=== PATIENT | female | born 1965 | race Caucasian/White ===

== ENCOUNTER 2018-03-07 11:38 | Emergency (ER) | payer OTHER, SELFPAY ==
[2018-03-07 11:39] VITALS: BP 187/103; PULSE 72; RESP 18; TEMP 35.8; O2SAT 94; BMI 51.9
--- NOTE | 2018-03-07 11:57 | EKG12_ITS ---
Test Reason : HYPERTENSION Blood Pressure : / mmHG Vent. Rate : 070 BPM Atrial Rate : 070 BPM P-R Int : 140 ms QRS Dur : 088 ms QT Int : 418 ms P-R-T Axes : 034 027 060 degrees QTc Int : 451 ms Normal sinus rhythm Normal ECG Confirmed by DAVI ESTRADA ([id number]), sports editor DIRK WRIGHT ([id number]) on 03/11/2018 2:25:39 PM Referred By: KANU Confirmed By:DAVI ESTRADA
[2018-03-07 12:23] LABS: Absolute Lymphocyte Count 1.47 X10^3/ul (0.83-4.51); Absolute Neutrophil Count 3.1 X10^3/uL (2.0-7.7); Basophil# 0.01 X10^3/uL; Basophil% 0.2 % (0-1); Eosinophil# 0.03 X10^3/uL; Eosinophils% 0.6 % (0-5); Hematocrit 42.9 % (37-47); Hemoglobin 14.1 g/dl (12.0-15.0); Lymphocyte # 1.47 X10^3/ul (4.0); Lymphocyte % 29.1 % (19-41); Mean Corp Hgb Conc 32.9 g/gl (32-36); Mean Corpuscular Hgb 31.2 pg (27.0-32.0); Mean Corpuscular Volume 94.9 fL (81-99); Monocyte# 0.43 X10^3/uL; Monocyte% 8.5 % (0-10); Neutrophil # 3.09 X10^3/uL (2.7-7.7); Neutrophil % 61.2 % (47-70); Platelet Count 185 K/mm3 (150-450); RBC Distribution Width CV 13.7 % (11.6-14.6); RBC Distribution Width SD 46.9 fl (35.1-43.9); Red Blood Count 4.52 M/mm3 (4.2-5.4); White Blood Count 5.1 K/mm3 (4.4-11.0)
[2018-03-07 12:26] VITALS: BP 136/85; PULSE 77; RESP 16; O2SAT 95
[2018-03-07 12:27] LABS: POSITIVE COUNT NO; POSITIVE DIFFERENTIAL NO; POSITIVE MORPHOLOGY NO
[2018-03-07 12:38] VITALS: BP 137/88; BP 156/111; BP 160/103; PULSE 74; PULSE 82; PULSE 83
[2018-03-07 12:39] LABS: Prothrombin Time (Protime)PT. 13.2 SECONDS (11.7-14.9)
[2018-03-07 12:40] LABS: Partial Thromboplast Time 26.8 Seconds (24.1-36.2)
--- NOTE | 2018-03-07 12:43 | ED.DCSUM_ITS ---
- ER Visit Summary Date of Service: 03/07/18 Chief Complaint: Dizziness History of Present Illness: The patient is a 52 F who presents with dizziness that began today. Patient states her dizziness began when she woke up today. Patient states she feels like she is falling to the left. Patient states that she also feels like she can fall backwards if she leans her head back. Patient denies any hearing changes or tinnitus. Patient denies any fevers or chills. Patient admits to some intermittent palpitations. Patient states she noticed her blood pressure was elevated this morning. Patient denies any chest pain or shortness of breath. Patient admits to a mild headache. Patient denies any weakness. Physical Examination: Vital signs are stable for an elevated blood pressure 187/ 103 initially. Patient is afebrile. Patient is in no acute distress. Oral mucosa is pink and moist. Neck is supple. Trachea is midline. There is no JVD noted. Pupils are equal, round, reactive to light bilaterally. Extraocular muscles are intact. There is no nystagmus noted. Heart was regular rate and rhythm. Lungs are clear and equal bilaterally. Abdomen is soft. Bowel sounds are normal. There is no tenderness noted. Cranial nerves II through XII are intact. There are no focal motor or sensory deficits noted. Test Results: EKG showed normal sinus rhythm with a rate of 70. There are no acute ST or T-wave changes. This was unchanged compared to previous EKG dated 06/01/2007. CT scan of the brain was obtained. There is no acute intracranial abnormality noted. PA and lateral chest x-ray was obtained. There is no acute cardiopulmonary process noted. CBC, basic metabolic profile, and troponin were obtained and were essentially within normal limits. Emergency Department Course and Treatment: Orthostatic vital signs were obtained and were normal. Patient denied any dizziness with position changes. Patient was given a dose of meclizine here. Patient had slight improvement of her dizziness. Patient was given prescription for meclizine. Patient was instructed to drink plenty of fluids. Patient was instructed to follow-up with her primary care physician in 7-10 days. Patient understood and was agreeable with the plan. All questions were answered. Disposition: Discharged home Impression: Dizziness This note was generated with [employer] dictation software. It may contain incorrect words, spelling, and punctuation that were not noted in review of the chart prior to signing ED Disposition - Plan for ED Patient: Disposition: Home or Assisted Living Chief Complaint: Hypertension Diagnosis: Dizziness Instructions: ED Dizziness [facility] Prescriptions: Meclizine HCl [Antivert] 25 mg PO TID PRN PRN #20 tab PRN Reason: Dizziness Referrals: Satnam García III, MD [Primary Care Provider] -
[2018-03-07 12:45] LABS: Anion Gap 9 (5-15); BUN 13 mg/dL (7-18); BUN/Creat Ratio 19.1 RATIO (10-20); Calcium,Total 9.1 mg/dL (8.5-10.1); Chloride 105 mmol/L (98-107); Creatinine, Serum 0.68 mg/dL (0.55-1.02); EST Glomerular Filtration Rate 96 mL/min (>60); Est Glom Filt Rate - Afr Amer 116 mL/min (>60); Estimated Creatinine Clearance 89.57 ml/min; Glucose 120 mg/dL (74-106); Potassium 3.7 mmol/L (3.5-5.1); Sodium Level 141 mmol/L (136-145)
[2018-03-07] MEDS: Meclizine HCl 25 MG Tablet PO (12:51)
[2018-03-07 13:55] VITALS: BP 142/98; PULSE 74; RESP 20; O2SAT 94
[2018-03-07 15:47] VITALS: BP 142/78; PULSE 66; RESP 16; O2SAT 97
== END 2018-03-07 15:47 | disposition home or self-care (01) ==
PROVIDERS: Emergency Provider Emergency Medicine; Family Provider Family Medicine; PCP Family Medicine
DX: R42 Dizziness and giddiness (principal); M19.90 Unspecified osteoarthritis, unspecified site; E66.9 Obesity, unspecified; Z68.43 Body mass index [BMI] 50.0-59.9, adult; Z79.899 Other long term (current) drug therapy
CPT/HCPCS: 70450; 71046; 80048; 85025; 85610; 85730; 93005; 99285; A4216

== ENCOUNTER 2021-07-14 11:23 | Outpatient (CLI) | payer OTHER, SELFPAY ==
[2021-07-14] MEDS: 0.9% Saline Lock 10 ML Syringe IV (11:36)
[2021-07-14 11:37] VITALS: BP 176/98; PULSE 93; RESP 18; TEMP 36.4; O2SAT 93; BMI 52.4
[2021-07-14 12:19] VITALS: BP 129/73; PULSE 67; RESP 16; TEMP 36.5; O2SAT 98
[2021-07-14 13:04] VITALS: BP 122/72; PULSE 65; RESP 16; TEMP 36.4; O2SAT 98
== END 2021-07-14 23:59 | disposition home or self-care (01) ==
LOC: MS3OUT 11:24 → MS3 11:24
PROVIDERS: Referring Provider Nurse Practitioner Adult Health; Visit Provider Nurse Practitioner Adult Health
DX: Z23 Encounter for immunization (principal); U07.1 COVID-19
CPT/HCPCS: J7050; M0245; Q0245; A4216

== ENCOUNTER 2022-12-25 12:52 | Emergency (ER) | payer OTHER, SELFPAY ==
[2022-12-25 12:53] VITALS: BP 179/106; PULSE 89; RESP 14; TEMP 36.6; O2SAT 92; BMI 54.3
--- NOTE | 2022-12-25 13:18 | EKG12_ITS ---
Test Reason : Blood Pressure : / mmHG Vent. Rate : 081 BPM Atrial Rate : 081 BPM P-R Int : 148 ms QRS Dur : 078 ms QT Int : 396 ms P-R-T Axes : 065 018 051 degrees QTc Int : 460 ms Normal sinus rhythm Normal ECG Confirmed by CHAPARRO PETIT, CHICHI ([id number]), video news editor MOSES MEDINA ([id number]) on 12/26/2022 10:02:30 AM Referred By: Confirmed By:CHICHI MAYFIELD MD
[2022-12-25] MEDS: cloNIDine HCl 0.1 MG Tablet PO (13:29)
[2022-12-25 13:44] LABS: Absolute Lymphocyte Count 1.98 X10^3/uL (0.83-4.51); Absolute Neutrophil Count 2.7 X10^3/uL (2.0-7.7); Basophil# 0.03 X10^3/uL; Basophil% 0.6 % (0-1); Eosinophil# 0.05 X10^3/uL; Hematocrit 43.3 % (37-47); Lymphocyte # 1.98 X10^3/ul (0.83-4.51); Lymphocyte % 38.2 % (19-41); Mean Corp Hgb Conc 32.3 g/dL (32-36); Mean Corpuscular Hgb 30.8 pg (27.0-32.0); Mean Corpuscular Volume 95.2 fL (81-99); Mean Platelet Vol. 11.5 fl (6.2-12.0); Monocyte# 0.39 X10^3/uL; Monocyte% 7.5 % (0-10); NRBC Flagged by Analyzer 0 % (0-5); Neutrophil # 2.71 X10^3/uL (2.7-7.7); Neutrophil % 52.3 % (47-70); Platelet Count 191 K/mm3 (150-450); RBC Distribution Width CV 13.3 % (11.6-14.6); RBC Distribution Width SD 45.9 fl (35.1-43.9); Red Blood Count 4.55 M/mm3 (4.2-5.4); White Blood Count 5.2 K/mm3 (4.4-11.0)
--- NOTE | 2022-12-25 13:45 | RAD_ITS ---
STUDY: X-RAY CHEST REASON FOR EXAM: Female, 57 years old. Hypertension TECHNIQUE: Single AP portable view of the chest. COMPARISON: 03/07/2018 FINDINGS: The lungs are clear and expanded. There is no demonstrated pleural abnormality. Normal size heart. Normal mediastinum and sal. Normal visualized pulmonary arteries. Normal visualized aortic arch and descending thoracic aorta. Normal visualized thoracic spine. Normal visualized ribs, clavicles, and shoulders. There is no demonstrated abnormality of the visualized soft tissue structures of the upper abdomen. RAD/Chest 1 View (Portable) IMPRESSION: Normal x-ray examination of the chest. Electronically Signed: Ra Lara MD at 14:04 EDT ,
[2022-12-25 14:02] LABS: Anion Gap 5 (5-15); BUN 9 mg/dL (7-18); BUN/Creat Ratio 13.1 RATIO (10-20); Calcium,Total 8.8 mg/dL (8.5-10.1); Chloride 106 mmol/L (98-107); Creatinine, Serum 0.69 mg/dL (0.55-1.02); EST Glomerular Filtration Rate 93 mL/min (>60); Est Glom Filt Rate - Afr Amer 113 mL/min (>60); Estimated Creatinine Clearance 86.42 ml/min; Glucose 193 mg/dL (74-106); Potassium 3.9 mmol/L (3.5-5.1); Sodium Level 138 mmol/L (136-145); Troponin-I HS 12 pg/mL (3.0-54.0)
[2022-12-25 14:07] VITALS: BP 165/99; PULSE 82; RESP 18; O2SAT 94
[2022-12-25 14:36] VITALS: BP 144/106; PULSE 74; RESP 14; O2SAT 96
--- NOTE | 2022-12-25 15:26 | EX.ED.DYSGE1 ---
HPI History of Present Illness Chief Complaint: Hypertension Informant: patient Onset/Context/Timing Onset: Today Context: Sudden Onset Timing: Continuous Quality: Pressure Location: Head Worsened by: Nothing Relieved by: Tylenol Narrative Narrative: Cleve with elevated blood pressures that began this morning. Patient states she woke up and felt pressure in her head. Patient states she checked her blood pressure at home and it was 238/155. Patient states she then checked her blood sugar and it was 233. Patient states she continue to monitor her blood pressure at home and it remained elevated. Patient states that her primary care physician recently had her stop her losartan. Patient denies any chest pain. Patient denies any shortness of breath. Patient denies any nausea or vomiting. Patient denies any diaphoresis. Patient states she did feel somewhat lightheaded when her blood pressure was high. [facility] Medical History (Updated 12/25/22 @ 15:[address] Justin Monk DO) HTN (hypertension) Home Medications zolpidem 10 mg tablet (Ambien) 10 mg PO QHS PRN PRN Sleep 08/14/15 [History Last Taken Unknown] cyclobenzaprine 10 mg tablet 10 mg PO QHS PRN Pain 12/25/22 [History Last Taken Unknown] Allergy/AdvReac Type Severity Reaction Status Date / Time celecoxib [From Celebrex] Allergy Rash Verified 12/25/22 12:53 Sulfa (Sulfonamide Allergy Rash Verified 12/25/22 12:53 Antibiotics) Surgical History (Updated 12/25/22 @ 15:[address] Justin Monk DO) Status post right partial knee replacement Social History Smoking Status: Never smoker ROS ROS ED Constitutional Constitutional ED: Denies chills or fever(s) Eyes Eyes: Denies blurry vision or change in vision ENT ENT ED: Denies rhinorrhea or sore throat Cardiovascular Cardiovascular: Denies chest pain or palpitations Respiratory/Chest Respiratory/Chest: Denies cough or dyspnea Gastrointestinal Gastrointestinal: Denies nausea or vomiting Genitourinary Genitourinary ED: Denies dysuria or hematuria Musculoskeletal Musculoskeletal: Reports back pain; Denies neck pain Integumentary Denies abscess or rash Neurologic Neurologic: Reports headache(s); Denies weakness Allergic/Immunologic Allergic/Immunologic ED: Denies mouth swelling or urticaria EXAM Physical Exam Const Vital Signs: 12/25/22 12:53 12/25/22 13:32 12/25/22 14:07 Temperature 98 F Temperature Source Temporal Pulse Rate 89 82 Respiratory Rate 14 18 Respiratory Effort Normal Non-Labored Respiratory Pattern Normal Blood Pressure 179/106 H 165/99 H Blood Pressure Mean 130 121 Pulse Ox 92 94 Oxygen Delivery Method Room Air Room Air 12/25/22 14:36 Temperature Temperature Source Pulse Rate 74 Respiratory Rate 14 Respiratory Effort Respiratory Pattern Blood Pressure 144/106 H Blood Pressure Mean 118 Pulse Ox 96 Oxygen Delivery Method Room Air Positive well nourished, well developed and obese General Appearance ED: well developed and NAD Nutritional Appearance: obese HEENT Reports moist mucous membranes Neck supple and no JVD Resp normal respiratory effort and clear to auscultation bilaterally Cardio regular rate, regular rhythm and no murmurs GI normal to inspection, nondistended, normoactive bowel sounds and non-tender Palpation: soft Extremity normal to inspection General Extremety ED: Negative for edema or tenderness General Extremity: Negative for edema Neuro oriented x3, CN's II-XII intact bilaterally and no sensory deficits noted Sensorium / Orientation: alert Motor Exam: strength 5/5 throughout Psych mental status grossly normal Skin no rashes or lesions noted MDM MDM MDM Narrative Medical decision making narrative: Differential diagnosis includes hypertensive emergency, uncontrolled hypertension, cardiac dysrhythmia, cardiac ischemia, electrolyte abnormality, and acute kidney injury. EKG will be obtained to assess for cardiac dysrhythmia and cardiac ischemia. Chest x-ray will be obtained to assess for cardiomegaly, congestive heart failure, and pneumonia. CBC will be obtained to assess for leukocytosis and anemia. Basic metabolic profile will be obtained to assess for electrolyte abnormality and renal function. High-sensitivity troponin will be obtained to assess for cardiac ischemia. Lab Data Attestation: I reviewed the patient's lab results. Lab results narrative: CBC was reviewed and was within normal limits. Basic metabolic profile was reviewed. Glucose was elevated at 193. The remainder was within normal limits. High-sensitivity troponin was reviewed and was normal at 12. Labs: Laboratory Results - last 24 hr 12/25/22 12/25/22 13:30 13:30 WBC 5.2 RBC 4.55 Hgb 14.0 Hct 43.3 MCV 95.2 MCH 30.8 MCHC 32.3 RDW Std Deviation 45.9 H RDW Coeff of Porfirio 13.3 Plt Count 191 MPV 11.5 Immature Gran % (Auto) 0.400 Neut % (Auto) 52.3 Lymph % (Auto) 38.2 [place] % (Auto) 7.5 Eos % (Auto) 1.0 Baso % (Auto) 0.6 Absolute Neuts (auto) 2.7 Absolute Lymphs (auto) 1.98 Nucleated RBC % 0 Sodium 138 Potassium 3.9 Chloride 106 Carbon Dioxide 27.0 Anion Gap 5 BUN 9 Creatinine 0.69 Estim Creat Clear Calc 86.42 Est GFR (MDRD) Af Amer 113 Est GFR (MDRD) Non-Af 93 BUN/Creatinine Ratio 13.1 Glucose 193 H Calcium 8.8 Troponin I High Sens 12 Radiography Diagnostic Testing: Clinical Impression(s) from Imaging Studies Chest X-Ray 12/25/22 13:45 IMPRESSION: Normal x-ray examination of the chest. Electronically Signed: Ra Lara MD at 14:04 EDT , Portable 1 view chest x-ray was obtained. On my independent interpretation, lung watson are clear. There is normal cardiac silhouette. Bony thorax is normal. There is no acute process noted. Radiologist also interpreted the x-ray and agrees. EKG Initial EKG: Attestation: I personally reviewed and interpreted this EKG as follows: Interpretation: Sinus Rhythm (81) and No Acute Injury Pattern Prior EKG tracings: available for review Prior: Unchanged (03/07/2018) Treatment and Re-Evaluation :: Patient was given a dose of clonidine here. Patient's blood pressure improved to 144/106. Patient was feeling better on reevaluation. Patient was instructed to restart her losartan. Patient was instructed to continue to monitor her blood pressures and to keep a log of these. Patient was instructed to follow-up with her primary care physician in 5 to 7 days. Patient understood and was agreeable with the plan. All questions were answered. Discharge Plan Triage Chief Complaint: Hypertension ED Provider: Justin Monk Dx/Rx/DC Orders Clinical Impression: Uncontrolled hypertension, BMI greater than 40 Instructions: ED High Blood Pressure Hypertension Prescriptions: No Action zolpidem [Ambien] 10 MG tablet 10 mg PO QHS PRN PRN (Reason: Sleep) cyclobenzaprine 10 mg tablet 10 mg PO QHS PRN (Reason: Pain) Label Comments: take 1 tablet by mouth three times a day if needed Primary Care Provider: Laura Shaikh NP Referrals: Laura Shaikh NP, [employer] [Primary Care Provider] - 5-7 Days Disposition Disposition: Home, Self Care
== END 2022-12-25 15:40 | disposition home or self-care (01) ==
PROVIDERS: Emergency Provider Emergency Medicine; PCP Registered Nurse; Visit Provider Emergency Medicine
DX: I10 Essential (primary) hypertension (principal); E66.9 Obesity, unspecified
CPT/HCPCS: 71045; 80048; 84484; 85025; 93005; 99285

== ENCOUNTER 2024-02-02 17:37 | Emergency (ER) | payer OTHER, SELFPAY ==
[2024-02-02 17:38] VITALS: BP 191/92; PULSE 102; RESP 20; TEMP 36.5; O2SAT 95; BMI 43.5
--- NOTE | 2024-02-02 18:07 | EDS_ITS ---
HPI History of Present Illness Chief Complaint: Flank Pain [facility] Medical History (Updated 02/02/24 @ 23:[address] Berhane Salazar, ) HTN (hypertension) Home Medications ?Medication ?Instructions ?Recorded ?Last Taken ?Type zolpidem 10 mg tablet (Ambien) 10 mg PO QHS PRN PRN Sleep 08/14/15 Unknown History cyclobenzaprine 10 mg tablet 10 - 20 mg PO QHS PRN Pain 12/25/22 Unknown History oxycodone 5 mg capsule 5 mg PO Q6H PRN pain 5 days #20 02/02/24 Unknown Rx caps prochlorperazine maleate 5 mg 5 mg PO TID PRN nausea and 02/02/24 Unknown Rx tablet (Compazine) vomiting #20 tabs Allergy/AdvReac Type Severity Reaction Status Date / Time lisinopril Allergy Intermediate COUGH Verified 02/02/24 17:38 celecoxib (From Celebrex) Allergy Rash Verified 02/02/24 17:38 Sulfa (Sulfonamide Allergy Rash Verified 02/02/24 17:38 Antibiotics) Surgical History (Updated 12/25/22 @ 15:[address] Justin Monk DO) Status post right partial knee replacement Social History Smoking Status: Never smoker EXAM Physical Exam Const Vital Signs: 02/02/24 17:38 02/02/24 19:37 02/02/24 21:37 Temperature 97.7 F L 100.2 F H Temperature Source Temporal Oral Pulse Rate 102 H 93 95 Respiratory Rate 20 H 21 H 20 H Blood Pressure 191/92 H 163/93 H 139/105 H Blood Pressure Mean 125 116 116 Pulse Ox 95 97 97 Oxygen Delivery Method Room Air Room Air Room Air 02/02/24 23:00 Temperature Temperature Source Pulse Rate 104 H Respiratory Rate 23 H Blood Pressure 123/69 H Blood Pressure Mean 87 Pulse Ox 93 Oxygen Delivery Method Room Air MDM MDM MDM Narrative Medical decision making narrative: HISTORY OF PRESENT ILLNESS: 58-year-old here with flank pain. Notes headache elevated blood pressure. No negrito he symptoms began several days ago. Denies falls or trauma. Denies focal loss of sensation. Denies family present history of connective tissue disorders. Notes history of abdominal surgery. Denies diarrhea or constipation. Denies vaginal bleeding or discharge. Denies vomiting but notes nausea. REVIEW OF SYSTEMS: Pertinent positives: Left flank pain, increased urination, chills headache and elevated blood pressure Pertinent negatives: As per HPI. PHYSICAL EXAM: Nursing triage notes reviewed, Vital signs reviewed Constitutional: please see mdm HENT: MMM Eyes: Pupils equal round and reactive to light, Extraocular muscles intact Neck: No stridor, no JVD, full neck ROM Lungs: Clear to auscultation, No wheezing or rales. No increased work of breathing, no conversational dyspnea, no accessory muscle use, no nasal flaring. No respiratory distress noted Heart: Regular rate and rhythm, No murmurs, No rubs and No gallops, 2+ distal pulses (radial, femoral, posterior tibial) in all extremities Abdomen: Soft, there is right upper quadrant TTP, positive Weathers sign but no rigidity, rebound or guarding, no obvious peritoneal signs, no palpable pulsatile abdominal masses, no auscultated abdominal bruit : No CVAT Extremities: No edema Neuro: No focal neurological deficits, cranial nerves II through XII intact, 5/5 strength in all extremities. Intact sensation to light touch in all extremities, 2+ reflexes bilateral patella tendons. Normal gait. No ataxia. Skin: No rash or lesions noted MEDICAL DECISION MAKING: Chief Complaint: flank pain External records reviewed: imaging reviewed: CT scan abdomen pelvisShows residual right hydronephrosis, right hydroureter, Factors affecting care: none nephrolithiasis Social determinants of health: none History obtained from others: the patient's family Consults: none [facility] Narrative: Patient was initially hypertensive with a blood pressure of 191/92, tachycardic to 102 otherwise afebrile nontoxic I considered the following differential diagnosis: Nephrolithiasis, hydronephrosis, AAA, acute cholecystitis I obtained a broad lab and imaging workup to further elucidate etiology the patient complaint. Initially treated the patient with IV metoclopramide, IV fluids for symptomatic control of headache, nausea. ALL IMAGES (IF OBTAINED) HAVE BEEN PERSONALLY REVIEWED AND INTERPRETED BY MYSELF. CBC without leukocytosis to suggest systemic inflammation, no anemia or thrombocytopenia Lactate is wnl indicating no end-organ hypoperfusion and/or hypoxia. BMP without evidence of significant electrolyte abnormalities, no anion gap, no acute kidney injury. Patient bilirubin is elevated concerning for hepatobiliary obstructive etiology given right upper quadrant TTP. Awaiting gallbladder ultrasound UA with evidence of inflammation and hematuria but no evidence of obvious UTI (in clinical context may be associated kidney stone) CT scan abdomen pelvis read reviewed per myself shows right hydronephrosis and approximately 3 to 4 mm nephrolithiasis. Urologist agrees with my interpretation. Radiologist notes 4.5 mm proximal right ureteral stone. With accompanying hydronephrosis. Ultrasound of the right upper quadrant shows no evidence of acute cholecystitis CT scan of the head showed no acute intracranial normality Upon reassessment patient's blood pressure improved to 123/69, heart rate sarah ined slightly elevated. The etiology of patient's complaints is likely secondary to nephrolithiasis. Patient's pain is under control. She is not vomiting. There is no signs of UTI or urosepsis. Patient is appropriate for discharge home with oral narcotics (oxycodone), instructions to take plenty of p.o. fluid, and Compazine for headache and nausea relief. The patient and/or family, caregivers express understanding. The patient and/or family, caregivers agrees with the plan. Shared decision making: I will have a discussion with the patient and or visitors regarding risk/benefits of further testing or admission. They will be made aware of of the risk/benefits inherent in this decision they will be given the opportunity to voice understanding. Total critical care time today provided was at least 0 [] minutes. This excludes separately billable procedures. Critical care time (if documented) is secondary to the patient having high probability of clinically significant/life threa tening deterioration in the patient's condition which required my urgent intervention. Impression: 1. Right flank pain 2. Right nephrolithiasis 3. Hydronephrosis 4. Hyperbilirubinemia Dispo: Discharge home This note was generated with [employer] dictation software. It may contain incorrect words, spelling, and punctuation that were not noted in review of the chart prior to signing. Lab Data Labs: Laboratory Results - last 24 hr 02/02/24 02/02/24 19:12 19:22 WBC 7.4 RBC 4.25 Hgb 13.2 Hct 39.9 MCV 93.9 MCH 31.1 MCHC 33.1 RDW Std Deviation 44.2 H RDW Coeff of Porfirio 13.0 Plt Count 224 MPV 10.9 Immature Gran % (Auto) 0.400 Neut % (Auto) 77.4 H Lymph % (Auto) 12.9 L [place] % (Auto) 8.5 Eos % (Auto) 0.4 Baso % (Auto) 0.4 Absolute Neuts (auto) 5.7 Absolute Lymphs (auto) 0.96 Nucleated RBC % 0 Sodium 140 Potassium 3.7 Chloride 107 Carbon Dioxide 28.0 Anion Gap 5 BUN 13 Creatinine 0.66 Estim Creat Clear Calc 126.63 Est GFR (MDRD) Af Amer 117 Est GFR (MDRD) Non-Af 97 BUN/Creatinine Ratio 19.6 Glucose 115 H Lactic Acid 0.9 Calcium 9.1 Total Bilirubin 1.20 H Direct Bilirubin 0.32 H AST 19 ALT 17 Alkaline Phosphatase 102 Total Protein 7.3 Albumin 3.1 L Globulin 4.2 Lipase 16 Urine Color Yellow Urine Clarity Clear Urine pH 8.0 Ur Specific [place] 1.015 Urine Protein 30 H Urine Glucose (UA) Normal Urine Ketones 50 H Urine Occult Blood 10 H Urine Nitrite Negative Urine Bilirubin Negative Urine Urobilinogen Normal Ur Leukocyte Esterase 25 H Urine RBC 0 SEEN Urine WBC 0 SEEN Ur Squamous Epith Cells 0 SEEN Calcium Oxalate Crystal RARE Urine Bacteria 0 SEEN Urine Mucus 0 SEEN Radiography Diagnostic Testing: Clinical Impression(s) from Imaging Studies Abdomen/Pelvis CT 02/02/24 19:05 IMPRESSION: 1. Moderate right hydronephrosis due to a stone measuring up to 4.5 mm in the proximal right ureter. 2. Leiomyoma measuring 2.9 cm and the left fundus of the uterus. 3. Scattered diverticula without diverticulitis. 4. Left renal cyst with layering milk of calcium within it unchanged since prior exam. No follow-up necessary. Electronically Signed: Jose Alegre MD at 22:41 EDT , Gallbladder Ultrasound 02/02/24 19:30 IMPRESSION: 1. Moderate hydronephrosis right kidney. 2. Sludge within the gallbladder. No gallstones identified. 3. Enlarged fatty liver. Electronically Signed: Jose Alegre MD at 22:37 EDT , Brain CT 02/02/24 20:15 IMPRESSION: No acute findings in the head/brain. Electronically Signed: Dhiraj Walter MD at 21:56 EDT , Discharge Plan Triage Chief Complaint: Flank Pain ED Provider: Berhane Salazar Dx/Rx/DC Orders Instructions: ED Kidney Stone with Pain Prescriptions: New oxycodone 5 mg capsule 5 mg PO Q6H PRN (Reason: pain) 5 Days Qty: 20 0RF prochlorperazine maleate [Compazine] 5 mg tablet 5 mg PO TID PRN (Reason: nausea and vomiting) Qty: 20 0RF No Action zolpidem [Ambien] 10 MG tablet 10 mg PO QHS PRN PRN (Reason: Sleep) cyclobenzaprine 10 mg tablet 10 - 20 mg PO QHS PRN (Reason: Pain) Patient Comments: take 1 tablet by mouth three times a day if needed Primary Care Provider: Laura Shaikh [employer] Referrals: Beatrice Pena MD [Med Staff - Active Staff] - Activity Restrictions/Additional Instructions: Thank you for trusting us with your care today! Given diagnosed with a kidney stone. This should pass on its own given its small size. Please take Compazine as needed for headache and and nausea control. Please take Tylenol (2 pills, 650 mg), ibuprofen (2 pills, 400 mg) every 6 hours as needed for pain and fever control. Please take oxycodone every 6 hours as needed for breakthrough pain control Please return to the emergency department if your symptoms change or worsen. Specifically did not urinate for greater than 12 hours, develop vomiting, develop fever, weakness, if you lose consciousness. Please follow with your primary care physician for further outpatient evaluation and management. Print Language: Macedonian Disposition Disposition: Home, Self Care
--- NOTE | 2024-02-02 19:05 | CT_ITS ---
EXAM: CT ABDOMEN AND PELVIS WITH INTRAVENOUS CONTRAST CLINICAL INDICATION: right flank pain TECHNIQUE: Helically acquired images were obtained of the abdomen and pelvis with intravenous contrast. This CT exam was performed using one or more of the following dose reduction techniques: automated exposure control, adjustment of the mA and/or kV according to patient size, and/or use of iterative reconstruction technique. CONTRAST: 100 cc of Isovue-370 IV. RADIATION DOSE: CTDIvol = 22.77 mGy, DLP = 1797.49 mGy-cm COMPARISON: 03/14/2016. FINDINGS: LOWER THORAX: Unremarkable. Lung bases are clear. No cardiomegaly. No significant pericardial effusion. ABDOMEN: LIVER: Unremarkable. Homogeneous. No focal mass. GALLBLADDER AND BILE DUCTS: Unremarkable. No calcified gallstones. No gallbladder distention or wall edema. No intra- or extrahepatic biliary ductal dilation. PANCREAS: Unremarkable. No focal cystic or solid mass. SPLEEN: Unremarkable. Normal size without focal cystic or solid mass. ADRENALS: Unremarkable. No nodules. KIDNEYS AND URETERS: Moderate right hydronephrosis due to a stone measuring up to 4.5 mm in the proximal right ureter. Left renal cyst with layering milk of calcium within it unchanged since prior exam. Normal renal size and position. STOMACH AND BOWEL: Scattered diverticula without diverticulitis. Status post gastric sleeve surgery. No stomach or bowel distention. PELVIS: APPENDIX: No evidence of acute appendicitis. BLADDER: Unremarkable. REPRODUCTIVE: Leiomyoma measuring 2.9 cm and the left fundus of the uterus. ABDOMEN and PELVIS: INTRAPERITONEAL SPACE: Unremarkable. No ascites or other fluid collection. No free air. BONES/JOINTS: Unremarkable. No suspicious lytic or blastic abnormality. SOFT TISSUES: Unremarkable. No discrete abdominal or pelvic wall hernia. VASCULATURE: Unremarkable. Abdominal aorta is non-dilated. LYMPH NODES: Unremarkable. No enlarged lymph nodes. CT/Abdomen/Pelvis W IV Cont ONLY IMPRESSION: 1. Moderate right hydronephrosis due to a stone measuring up to 4.5 mm in the proximal right ureter. 2. Leiomyoma measuring 2.9 cm and the left fundus of the uterus. 3. Scattered diverticula without diverticulitis. 4. Left renal cyst with layering milk of calcium within it unchanged since prior exam. No follow-up necessary. Electronically Signed: Jose Alegre MD at 22:41 EDT ,
--- NOTE | 2024-02-02 19:05 | EKG12_ITS ---
Test Reason : DYSRHYTHMIA Blood Pressure : / mmHG Vent. Rate : 090 BPM Atrial Rate : 090 BPM P-R Int : 142 ms QRS Dur : 082 ms QT Int : 364 ms P-R-T Axes : 058 000 061 degrees QTc Int : 445 ms Normal sinus rhythm Possible Left atrial enlargement Borderline ECG Confirmed by Jose Alas ([id number]), editorial writer DURGA ADAME ([id number]) on 02/04/2024 2:13:19 PM Referred By: Confirmed By:Jose Alas
[2024-02-02] MEDS: Metoclopramide 10 MG/2 ML Vial 5 MG IV (19:14)
[2024-02-02] MEDS: 0.9% Normal Saline (1000mL) 1,000 ML 1000 ML IV (19:14)
[2024-02-02 19:20] LABS: Bacteria 0 SEEN /hpf (None Seen); Mucous, Urine 0 SEEN /hpf (<or=2+); Red Blood Cells-Urine 0 SEEN /hpf (0-5); Squamous Epithelial Cells - UA 0 SEEN /hpf (5-10); White Blood Cells 0 SEEN /hpf (0-5)
[2024-02-02 19:26] LABS: Color, Urine Yellow (Yellow); Glucose, Dipstick Normal (Normal); Ketone-Dipstick 50 mg/dl (Negative); Leukocyte Esterase-Dipstick 25 /ul (Negative); Nitrite-Dipstick Negative (Negative); Occult Blood-Urine 10 /ul (Negative); Protein-Dipstick 30 mg/dl (Negative); Specific Gravity, Urine 1.015 (1.002-1.030); Urine Bilirubin Dipstick Negative (Negative); Urine Clarity Clear (Clear); Urine Urobilinogen Normal (Normal)
[2024-02-02 19:30] LABS: Absolute Lymphocyte Count 0.96 X10^3/uL (0.83-4.51); Absolute Neutrophil Count 5.7 X10^3/uL (2.0-7.7); Basophil# 0.03 X10^3/uL; Basophil% 0.4 % (0-1); Eosinophil# 0.03 X10^3/uL; Eosinophils% 0.4 % (0-5); Hematocrit 39.9 % (37-47); Hemoglobin 13.2 g/dL (12.0-15.0); Lymphocyte # 0.96 X10^3/ul (0.83-4.51); Lymphocyte % 12.9 % (19-41); Mean Corp Hgb Conc 33.1 g/dL (32-36); Mean Corpuscular Hgb 31.1 pg (27.0-32.0); Mean Corpuscular Volume 93.9 fL (81-99); Mean Platelet Vol. 10.9 fl (6.2-12.0); Monocyte# 0.63 X10^3/uL; Monocyte% 8.5 % (0-10); NRBC Flagged by Analyzer 0 % (0-5); Neutrophil # 5.74 X10^3/uL (2.7-7.7); Neutrophil % 77.4 % (47-70); Platelet Count 224 K/mm3 (150-450); RBC Distribution Width SD 44.2 fl (35.1-43.9); Red Blood Count 4.25 M/mm3 (4.2-5.4); White Blood Count 7.4 K/mm3 (4.4-11.0)
--- NOTE | 2024-02-02 19:30 | US_ITS ---
EXAM: US ABDOMEN LIMITED, RIGHT UPPER QUADRANT CLINICAL INDICATION: RUQ TTP TECHNIQUE: Real-time ultrasound of the right upper quadrant with image documentation. COMPARISON: No relevant prior studies available. FINDINGS: LIVER: The liver measures 21 cm. Hepatomegaly. Increased echogenicity of the liver. No intrahepatic biliary ductal dilation. GALLBLADDER: Sludge within the gallbladder. No shadowing gallstone. No gallbladder wall thickening is demonstrated. No pericholecystic fluid. Negative sonographic Weathers''s sign. COMMON BILE DUCT: Unremarkable as visualized. The proximal common bile duct is within normal limits for the patient''s age. PANCREAS: Pancreas is not well visualized. RIGHT KIDNEY: Moderate hydronephrosis right kidney. No shadowing calculus. No focal lesion or perinephric collection is demonstrated. US/Gallbladder IMPRESSION: 1. Moderate hydronephrosis right kidney. 2. Sludge within the gallbladder. No gallstones identified. 3. Enlarged fatty liver. Electronically Signed: Jose Alegre MD at 22:37 EDT ,
[2024-02-02 19:37] VITALS: BP 163/93; PULSE 93; RESP 21; O2SAT 97
[2024-02-02 19:39] LABS: Calcium Oxalate Crystals Ur RARE /hpf (<or=2+)
[2024-02-02 19:49] LABS: AST(SGOT) 19 U/L (15-37); Alanine Aminotransfer ALT/SGPT 17 U/L (13-56); Albumin, Serum 3.1 g/dL (3.2-5.0); Alkaline Phosphatase 102 U/L (45-117); Anion Gap 5 (5-15); BUN 13 mg/dL (7-18); BUN/Creat Ratio 19.6 RATIO (10-20); Bilirubin, Direct 0.32 mg/dL (0.00-0.30); Calcium,Total 9.1 mg/dL (8.5-10.1); Chloride 107 mmol/L (98-107); Creatinine, Serum 0.66 mg/dL (0.55-1.02); EST Glomerular Filtration Rate 97 mL/min (>60); Est Glom Filt Rate - Afr Amer 117 mL/min (>60); Estimated Creatinine Clearance 126.63 ml/min; Globulin 4.2 g/dL (2.2-4.2); Glucose 115 mg/dL (74-106); Lipase 16 U/L (13-75); Potassium 3.7 mmol/L (3.5-5.1); Protein, Total 7.3 g/dL (6.4-8.2); Sodium Level 140 mmol/L (136-145)
--- NOTE | 2024-02-02 20:15 | CT_ITS ---
EXAM: CT HEAD WITHOUT INTRAVENOUS CONTRAST CLINICAL INDICATION: headache TECHNIQUE: Multiple axial images were obtained of the head without intravenous contrast. This CT exam was performed using one or more of the following dose reduction techniques: automated exposure control, adjustment of the mA and/or kV according to patient size, and/or use of iterative reconstruction technique. RADIATION DOSE: CTDIvol = 44.99 mGy, DLP = 849.54 mGy-cm COMPARISON: 9.7.18 FINDINGS: BRAIN AND EXTRA-AXIAL SPACES: Unremarkable. No intra- or extra-axial hemorrhage. No evidence of acute infarct. No intracranial mass or mass effect. There is preservation of the [place]/white matter interface. Posterior fossa structures are unremarkable. Ventricles are appropriate for age. No hydrocephalus. Basal cisterns are patent. BONES/JOINTS: Degenerative changes of the mandibular condyles. No discrete lytic or blastic abnormalities. SINUSES: Unremarkable as visualized. Clear. MASTOID AIR CELLS: Unremarkable. Clear. ORBITS: Visualized globes, extraocular muscles, optic nerves and retrobulbar fat appear unremarkable. CT/Brain/Head without Contrast IMPRESSION: No acute findings in the head/brain. Electronically Signed: Dhiraj Walter MD at 21:56 EDT ,
[2024-02-02 20:16] LABS: Lactic Acid 0.9 mmol/L (0.4-1.9)
[2024-02-02] MEDS: DiphenhydrAMINE 50 MG/ML Syringe 12.5 MG IV (21:35)
[2024-02-02] MEDS: proCHLORPERazine 10 MG/2 ML Vial 5 MG IV (21:36)
[2024-02-02 21:37] VITALS: BP 139/105; PULSE 95; RESP 20; TEMP 37.9; O2SAT 97
[2024-02-02] MEDS: Acetaminophen 325 MG Tablet 650 MG PO (22:16)
[2024-02-02] MEDS: Ketorolac 15 MG/ML Vial IV (22:17)
[2024-02-02 23:00] VITALS: BP 123/69; PULSE 104; RESP 23; O2SAT 93
[2024-02-02 23:25] VITALS: BP 129/67; PULSE 101; RESP 23; TEMP 37.1; O2SAT 95
--- NOTE | 2024-02-03 17:14 | EX.ED.DYSGE1 ---
HPI History of Present Illness Chief Complaint: Flank Pain PFSH PFSH Medical History (Updated 02/02/24 @ 23:[address] Berhane Salazar, ) HTN (hypertension) Home Medications ?Medication ?Instructions ?Recorded ?Last Taken ?Type zolpidem 10 mg tablet (Ambien) 10 mg PO QHS PRN PRN Sleep 08/14/15 Unknown History cyclobenzaprine 10 mg tablet 10 - 20 mg PO QHS PRN Pain 12/25/22 Unknown History oxycodone 5 mg capsule 5 mg PO Q6H PRN pain 5 days #20 02/02/24 Unknown Rx caps prochlorperazine maleate 5 mg 5 mg PO TID PRN nausea and 02/02/24 Unknown Rx tablet (Compazine) vomiting #20 tabs oxycodone 5 mg tablet 5 mg PO Q6H PRN pain 3 days #12 02/03/24 Unknown Rx tabs Allergy/AdvReac Type Severity Reaction Status Date / Time lisinopril Allergy Intermediate COUGH Verified 02/02/24 17:38 celecoxib (From Celebrex) Allergy Rash Verified 02/02/24 17:38 Sulfa (Sulfonamide Allergy Rash Verified 02/02/24 17:38 Antibiotics) Surgical History (Updated 12/25/22 @ 15:[address] Justin Monk DO) Status post right partial knee replacement Social History Smoking Status: Never smoker EXAM Physical Exam Const Vital Signs: 02/02/24 23:00 02/02/24 23:25 Temperature 98.7 F Pulse Rate 104 H 101 H Respiratory Rate 23 H 23 H Blood Pressure 123/69 H 129/67 H Blood Pressure Mean 87 87 Pulse Ox 93 95 Oxygen Delivery Method Room Air MDM MDM MDM Narrative Medical decision making narrative: Per pharmacy this prescription was sent for caps and not tablets they were requesting the change in prescription to oxycodone 5 mg tablets which was done for the patient after reviewing of the record and patient's previous provider was prescribing them oxycodone for pain control of a kidney stone. Lab Data Labs: Laboratory Results - last 24 hr 02/02/24 02/02/24 19:12 19:22 WBC 7.4 RBC 4.25 Hgb 13.2 Hct 39.9 MCV 93.9 MCH 31.1 MCHC 33.1 RDW Std Deviation 44.2 H RDW Coeff of Porfirio 13.0 Plt Count 224 MPV 10.9 Immature Gran % (Auto) 0.400 Neut % (Auto) 77.4 H Lymph % (Auto) 12.9 L [place] % (Auto) 8.5 Eos % (Auto) 0.4 Baso % (Auto) 0.4 Absolute Neuts (auto) 5.7 Absolute Lymphs (auto) 0.96 Nucleated RBC % 0 Sodium 140 Potassium 3.7 Chloride 107 Carbon Dioxide 28.0 Anion Gap 5 BUN 13 Creatinine 0.66 Estim Creat Clear Calc 126.63 Est GFR (MDRD) Af Amer 117 Est GFR (MDRD) Non-Af 97 BUN/Creatinine Ratio 19.6 Glucose 115 H Lactic Acid 0.9 Calcium 9.1 Total Bilirubin 1.20 H Direct Bilirubin 0.32 H AST 19 ALT 17 Alkaline Phosphatase 102 Total Protein 7.3 Albumin 3.1 L Globulin 4.2 Lipase 16 Urine Color Yellow Urine Clarity Clear Urine pH 8.0 Ur Specific [place] 1.015 Urine Protein 30 H Urine Glucose (UA) Normal Urine Ketones 50 H Urine Occult Blood 10 H Urine Nitrite Negative Urine Bilirubin Negative Urine Urobilinogen Normal Ur Leukocyte Esterase 25 H Urine RBC 0 SEEN Urine WBC 0 SEEN Ur Squamous Epith Cells 0 SEEN Calcium Oxalate Crystal RARE Urine Bacteria 0 SEEN Urine Mucus 0 SEEN Radiography Diagnostic Testing: Clinical Impression(s) from Imaging Studies Abdomen/Pelvis CT 02/02/24 19:05 IMPRESSION: 1. Moderate right hydronephrosis due to a stone measuring up to 4.5 mm in the proximal right ureter. 2. Leiomyoma measuring 2.9 cm and the left fundus of the uterus. 3. Scattered diverticula without diverticulitis. 4. Left renal cyst with layering milk of calcium within it unchanged since prior exam. No follow-up necessary. Electronically Signed: Jose Alegre MD at 22:41 EDT , Gallbladder Ultrasound 02/02/24 19:30 IMPRESSION: 1. Moderate hydronephrosis right kidney. 2. Sludge within the gallbladder. No gallstones identified. 3. Enlarged fatty liver. Electronically Signed: Jose Alegre MD at 22:37 EDT , Brain CT 02/02/24 20:15 IMPRESSION: No acute findings in the head/brain. Electronically Signed: Dhiraj Walter MD at 21:56 EDT , Discharge Plan Triage Chief Complaint: Flank Pain ED Provider: Berhane Salazar Dx/Rx/DC Orders Instructions: ED Kidney Stone with Pain Prescriptions: New oxycodone 5 mg capsule 5 mg PO Q6H PRN (Reason: pain) 5 Days Qty: 20 0RF prochlorperazine maleate [Compazine] 5 mg tablet 5 mg PO TID PRN (Reason: nausea and vomiting) Qty: 20 0RF oxycodone 5 mg tablet 5 mg PO Q6H PRN (Reason: pain) 3 Days Qty: 12 0RF No Action zolpidem [Ambien] 10 MG tablet 10 mg PO QHS PRN PRN (Reason: Sleep) cyclobenzaprine 10 mg tablet 10 - 20 mg PO QHS PRN (Reason: Pain) Patient Comments: take 1 tablet by mouth three times a day if needed Primary Care Provider: Laura Shaikh NP Referrals: Beatrice Pena MD [[facility] Staff - Active Staff] - Activity Restrictions/Additional Instructions: Thank you for trusting us with your care today! Given diagnosed with a kidney stone. This should pass on its own given its small size. Please take Compazine as needed for headache and and nausea control. Please take Tylenol (2 pills, 650 mg), ibuprofen (2 pills, 400 mg) every 6 hours as needed for pain and fever control. Please take oxycodone every 6 hours as needed for breakthrough pain control Please return to the emergency department if your symptoms change or worsen. Specifically did not urinate for greater than 12 hours, develop vomiting, develop fever, weakness, if you lose consciousness. Please follow with your primary care physician for further outpatient evaluation and management. Print Language: Japanese Disposition Disposition: Home, Self Care Discharge Date/Time: 02/02/24 23:25
== END 2024-02-02 23:25 | disposition home or self-care (01) ==
PROVIDERS: Emergency Provider Emergency Medicine; PCP Registered Nurse; Visit Provider Emergency Medicine
DX: N13.2 Hydronephrosis with renal and ureteral calculous obstruction (principal); R31.9 Hematuria, unspecified; I10 Essential (primary) hypertension; E80.6 Other disorders of bilirubin metabolism; Z79.899 Other long term (current) drug therapy; Z96.651 Presence of right artificial knee joint
CPT/HCPCS: 70450; 74177; 76705; 80048; 80076; 81001; 83605; 83690; 85025; 87086; 87088; 93005; 96361; 96374; 96375; 96376; 99285; J7030; Q9967; A4216

== ENCOUNTER 2024-06-03 15:45 | Inpatient (IN) | payer OTHER, SELFPAY ==
[2024-06-03] VITALS (15 sets, daily range): BP systolic 111–153; BP diastolic 46–98; PULSE 90–154; RESP 16–22; TEMP 36.1–39.5; O2SAT 94–100; BMI 44.1; BMI 43.9
--- NOTE | 2024-06-03 16:05 | RAD_ITS ---
STUDY: X-RAY CHEST REASON FOR EXAM: Female, 58 years old. sob TECHNIQUE: Single AP portable view of the chest. COMPARISON: 12/25/2022. FINDINGS: The lungs are clear and expanded. There is no demonstrated pleural abnormality. Normal size heart. Normal mediastinum and sal. Normal visualized pulmonary arteries. Normal visualized aortic arch and descending thoracic aorta. Normal visualized thoracic spine. Normal visualized ribs, clavicles, and shoulders. There is no demonstrated abnormality of the visualized soft tissue structures of the upper abdomen. RAD/Chest PA and Lateral IMPRESSION: Normal x-ray examination of the chest. Electronically Signed: Ra Lara MD at 16:34 EST ,
[2024-06-03 16:20] LABS: Absolute Lymphocyte Count 0.51 X10^3/uL (0.83-4.51); Absolute Neutrophil Count 12.7 X10^3/uL (2.0-7.7); Basophil# 0.03 X10^3/uL; Basophil% 0.2 % (0-1); Eosinophil# 0.01 X10^3/uL; Eosinophils% 0.1 % (0-5); Hematocrit 38.9 % (37-47); Hemoglobin 13.1 g/dL (12.0-15.0); Lymphocyte # 0.51 X10^3/ul (0.83-4.51); Lymphocyte % 3.7 % (19-41); Mean Corp Hgb Conc 33.7 g/dL (32-36); Mean Corpuscular Hgb 30.8 pg (27.0-32.0); Mean Corpuscular Volume 91.3 fL (81-99); Monocyte% 2.9 % (0-10); NRBC Flagged by Analyzer 0 % (0-5); Neutrophil # 12.72 X10^3/uL (2.7-7.7); Neutrophil % 92.4 % (47-70); POSITIVE DIFFERENTIAL YES; Platelet Count 330 K/mm3 (150-450); RBC Distribution Width CV 12.7 % (11.6-14.6); RBC Distribution Width SD 42.1 fl (35.1-43.9); Red Blood Count 4.26 M/mm3 (4.2-5.4); White Blood Count 13.8 K/mm3 (4.4-11.0)
[2024-06-03 16:36] LABS: Anion Gap 8 (5-15); BUN 15 mg/dL (7-18); BUN/Creat Ratio 16.3 RATIO (10-20); Calcium,Total 9.2 mg/dL (8.5-10.1); Chloride 105 mmol/L (98-107); Creatinine, Serum 0.92 mg/dL (0.55-1.02); EST Glomerular Filtration Rate 66 mL/min (>60); Est Glom Filt Rate - Afr Amer 80 mL/min (>60); Glucose 200 mg/dL (74-106); Potassium 3.8 mmol/L (3.5-5.1); Sodium Level 138 mmol/L (136-145)
--- NOTE | 2024-06-03 16:55 | EDS_ITS ---
HPI History of Present Illness Chief Complaint: Fever Detail of Chief Complaint: Fever Informant: patient Narrative Narrative: Fever started May 17. At that time she had headache and bodyaches and a scratchy throat. Eventually tested positive for COVID th on 21 May. Her also then tested positive and her father has COVID-19 also and was hospitalized with it. Patient continues to run fevers. She was seen at urgent care 2 days ago and tested negative for COVID-19 as well as flu and RSV. Yesterday had fever up to 106. She continues to complain of chills and sweats. Last ibuprofen dose was at 3 PM. She denies urinary symptoms. She did have 3 episodes of vomiting today she thinks may be was related to cough. She has had no diarrhea. Patient denies any rashes or cellulitic changes. [facility] Medical History (Updated 06/03/24 @ 20:[address] Ashlee Hagan, DO) HTN (hypertension) Home Medications ?Medication ?Instructions ?Recorded ?Last Taken ?Type zolpidem 10 mg tablet (Ambien) 10 mg PO QHS PRN PRN Sleep 08/14/15 Unknown History cyclobenzaprine 10 mg tablet 10 - 20 mg PO QHS PRN Pain 12/25/22 Unknown History Allergy/AdvReac Type Severity Reaction Status Date / Time lisinopril Allergy Intermediate COUGH Verified 06/03/24 16:07 celecoxib (From Celebrex) Allergy Rash Verified 06/03/24 16:07 Sulfa (Sulfonamide Allergy Rash Verified 06/03/24 16:07 Antibiotics) Surgical History (Updated 12/25/22 @ 15:[address] Justin Monk DO) Status post right partial knee replacement Social History Smoking Status: Never smoker ROS ROS ED Review of Systems ROS Unobtainable: other Constitutional Constitutional ED: Reports chills, fever(s), lethargy and sweats; Denies weight loss Eyes Eyes: Denies blurry vision, change in vision or diplopia ENT ENT ED: Denies rhinorrhea or sore throat Cardiovascular Cardiovascular: Denies chest pain, orthopnea or racing heartbeat Respiratory/Chest Respiratory/Chest: Reports cough; Denies dyspnea, dyspnea on exertion, orthopnea or sputum Gastrointestinal Gastrointestinal: Denies abdominal pain, diarrhea, nausea or vomiting Genitourinary Genitourinary ED: Denies dysuria, hematuria or urinary frequency Musculoskeletal Musculoskeletal: Denies arthralgias, back pain, myalgias or neck pain Integumentary Denies abscess, Abrasions or rash Neurologic Neurologic: Reports headache(s); Denies weakness Psychiatric Psychiatric: Denies anxiety, depression or suicidal thoughts Endocrine Endocrinology: Denies polydipsia, polyphagia or polyuria Hematologic/Lymphatic Hematologic/Lymphatic: Denies easy bleeding, easy bruising or lymphadenopathy Allergic/Immunologic Allergic/Immunologic ED: Denies mouth swelling, tongue swelling or urticaria EXAM Physical Exam Const Vital Signs: 06/03/24 15:46 06/03/24 16:50 06/03/24 17:12 Temperature 103.1 F H 100.2 F H Temperature Source Oral Temporal Pulse Rate 154 H 111 H Respiratory Rate 22 H 21 H Blood Pressure 112/98 H 145/74 H Blood Pressure Mean 102 97 Pulse Ox 95 94 Oxygen Delivery Method Room Air Room Air Room Air 06/03/24 17:12 06/03/24 17:13 06/03/24 18:00 Temperature 100.2 F H 98.5 F Temperature Source Oral Oral Pulse Rate 102 H Respiratory Rate 16 Blood Pressure 111/72 Blood Pressure Mean 85 Pulse Ox 95 95 Oxygen Delivery Method Room Air 06/03/24 19:00 Temperature 98.2 F Temperature Source Oral Pulse Rate 100 Respiratory Rate 16 Blood Pressure 111/72 Blood Pressure Mean 85 Pulse Ox 100 Oxygen Delivery Method Room Air Positive well nourished and well developed General Appearance ED: well developed and NAD HEENT Reports TM's clear and moist mucous membranes normocephalic and atraumatic; Negative for trauma or tenderness Tympanic Membrane ED: Yes TM's clear Eyes PERRL and EOMs intact bilaterally General Eye ED: Negative for pale conjunctiva or scleral icterus Neck no lymphadenopathy, supple and no JVD General: Negative for tenderness Chest Wall inspection of chest normal and palpation of chest normal Chest: Negative for tenderness Resp normal respiratory effort and clear to auscultation bilaterally Effort and Inspection: Negative for respiratory distress or pain with movement Auscultation: Negative for rhonchi, wheezes or diminished lung sounds Cardio regular rhythm, S1 normal heart sound, S2 normal heart sound and no murmurs; Negative for regular rate Rate: tachycardic Peripheral Pulses: pulses 2+ throughout GI normal to inspection, nondistended, normoactive bowel sounds, soft to palpation, non-tender, non-distended and no masses Back/Spine no CVA tenderness and no thoracic nor lumbar tenderness Extremity normal to inspection General Extremety ED: Negative for edema General Extremity: Negative for edema Neuro oriented x3, CN's II-XII intact bilaterally, no sensory deficits noted and gait normal Sensorium / Orientation: awake, alert, oriented to person, oriented to place and oriented to time Motor Exam: strength 5/5 throughout and strength abnormal Psych mental status grossly normal Skin no rashes or lesions noted and no wounds MDM MDM MDM Narrative Medical decision making narrative: Patient presents with high fevers recent COVID diagnosis. She tested negative for COVID several days ago. IV line established blood cultures ordered. CBC with differential white count of 13.8 with hemoglobin 13 and platelet count of 330. Chemistries unremarkable. Lactate was normal at 1.2. Urinalysis positive for infection. Patient started on Rocephin IV. I did obtain a CT scan of the abdomen pelvis as she has history of kidney stones to rule out obstruction with sepsis. CT scan shows a 5 mm stone right proximal ureter with hydroureter. Discussed case with urology Dr. Wright who asked that we admit patient to medicine and he will call the surgical team and to put a stent in to relieve the obstruction. Lab Data Attestation: I reviewed the patient's lab results. Labs: Laboratory Results - last 24 hr 06/03/24 06/03/24 06/03/24 16:13 16:46 17:14 WBC 13.8 H RBC 4.26 Hgb 13.1 Hct 38.9 MCV 91.3 MCH 30.8 MCHC 33.7 RDW Std Deviation 42.1 RDW Coeff of Porfirio 12.7 Plt Count 330 MPV 10.0 Immature Gran % (Auto) 0.700 Neut % (Auto) 92.4 H Lymph % (Auto) 3.7 L [place] % (Auto) 2.9 Eos % (Auto) 0.1 Baso % (Auto) 0.2 Absolute Neuts (auto) 12.7 H Absolute Lymphs (auto) 0.51 L Nucleated RBC % 0 Sodium 138 Potassium 3.8 Chloride 105 Carbon Dioxide 26.0 Anion Gap 8 BUN 15 Creatinine 0.92 Estim Creat Clear Calc 91.60 Est GFR (MDRD) Af Amer 80 Est GFR (MDRD) Non-Af 66 BUN/Creatinine Ratio 16.3 Glucose 200 H Lactic Acid 1.2 Calcium 9.2 Urine Color Yellow Urine Clarity Sl. Cloudy Urine pH 6.0 Ur Specific [place] 1.010 Urine Protein 100 H Urine Glucose (UA) Normal Urine Ketones Negative Urine Occult Blood 250 H Urine Nitrite Positive H Urine Bilirubin Negative Urine Urobilinogen Normal Ur Leukocyte Esterase 500 H Urine RBC 5-10 SEEN Urine WBC 10-25 SEEN Ur Squamous Epith Cells 0-5 SEEN Urine Bacteria 3+ WBC Casts 0-5 SEEN Urine Mucus 0 SEEN Radiography Diagnostic Testing: Clinical Impression(s) from Imaging Studies Chest X-Ray 06/03/24 16:05 IMPRESSION: Normal x-ray examination of the chest. Electronically Signed: Ra Lara MD at 16:34 EST , Abdomen/Pelvis CT 06/03/24 18:35 IMPRESSION: Limited by patient''s size. There has been no movement of a proximal right ureteral stone since January. Moderate right hydronephrosis. Probable cholelithiasis. Stable stones and calcifications of the mid left kidney. Moderate diffuse fecal retention. Electronically Signed: Ra Lara MD at 19:40 EST , Discharge Plan Triage Chief Complaint: Fever ED Provider: Ashlee Hagan Dx/Rx/DC Orders Clinical Impression: Urolithiasis, UTI (urinary tract infection), Leukocytosis Prescriptions: No Action zolpidem [Ambien] 10 MG tablet 10 mg PO QHS PRN PRN (Reason: Sleep) cyclobenzaprine 10 mg tablet 10 - 20 mg PO QHS PRN (Reason: Pain) Patient Comments: take 1 tablet by mouth three times a day if needed Primary Care Provider: Laura Shaikh NP Referrals: Laura Shaikh NP, [employer] [Primary Care Provider] - Print Language: Bots[place]an Disposition Disposition: [facility]
[2024-06-03] MEDS: 0.9% Normal Saline (1000mL) 1,000 ML 999 ML IV (17:12)
[2024-06-03 17:19] LABS: Lactic Acid 1.2 mmol/L (0.4-1.9)
[2024-06-03 17:20] LABS: Mucous, Urine 0 SEEN /hpf (<or=2+)
[2024-06-03 17:25] LABS: Color, Urine Yellow (Yellow); Glucose, Dipstick Normal (Normal); Ketone-Dipstick Negative (Negative); Leukocyte Esterase-Dipstick 500 /ul (Negative); Nitrite-Dipstick Positive (Negative); Occult Blood-Urine 250 /ul (Negative); Protein-Dipstick 100 mg/dl (Negative); Urine Bilirubin Dipstick Negative (Negative); Urine Clarity Sl. Cloudy (Clear); Urine Urobilinogen Normal (Normal)
[2024-06-03 17:32] LABS: Bacteria 3+ /hpf (None Seen); Red Blood Cells-Urine 5-10 SEEN /hpf (0-5); Squamous Epithelial Cells - UA 0-5 SEEN /hpf (5-10); White Blood Cells 10-25 SEEN /hpf (0-5); White Cell Cast 0-5 SEEN /lpf (None Seen)
--- NOTE | 2024-06-03 18:35 | CT_ITS ---
STUDY: CT ABDOMEN AND PELVIS WITHOUT CONTRAST REASON FOR EXAM: Female, 58 years old. left flank pain RADIATION DOSAGE (If Supplied By Facility): = ( 23.82 ) mGy, DLP = ( 1297.12 ) mGycm TECHNIQUE: Transaxial images were obtained from the dome of the diaphragm to the symphysis pubis without oral contrast, and without intravenous contrast. Sagittal and coronal images were reconstructed. Individualized dose optimization techniques were used for this CT. COMPARISON: 02/02/2024. FINDINGS: Exam limited by patient size which causes artifact and decreases resolution. The visualized lung bases are unremarkable. The visualized portions of the heart are within normal limits. There is marked hepatomegaly and fatty infiltration of the liver. Distended gallbladder with increased density along the dependent portion of the gallbladder. This may be sludge and/or tiny stones. Findings were also present previously. Unremarkable pancreas. Mild to moderate splenomegaly. Normal bilateral adrenal glands. Abnormal right kidney which shows persistent moderate hydronephrosis and previous study related to a stable 5 mm proximal right ureteral stone which is not low in the prior study in January. Stable left kidney with mid renal scar associated with calcification and 2 cm mid renal cyst within which are calcifications. Evaluation of the GI tract is limited by absence of oral contrast. There has been previous gastric sleeve surgery. No dilated loops of bowel or evidence for obstruction. Cannot exclude segmental thickening of the mon of the small or large bowel. Cannot exclude enteritis or colitis. Moderate diffuse fecal retention. Diverticulosis without definite diverticulitis. Appendix within normal limits. Normal abdominal aorta. Normal inferior vena cava. Normal retroperitoneum. Normal urinary bladder. Normal visualized uterus. Normal abdominal wall. Normal osseous structures. CT/Abdomen/Pelvis without Cont IMPRESSION: Limited by patient''s size. There has been no movement of a proximal right ureteral stone since January. Moderate right hydronephrosis. Probable cholelithiasis. Stable stones and calcifications of the mid left kidney. Moderate diffuse fecal retention. Electronically Signed: Ra Lara MD at 19:40 EST ,
[2024-06-03] MEDS: Ceftriaxone 1 GM/50 ML BAG IV (18:52)
--- NOTE | 2024-06-03 20:16 | HP.PCM.HOS_ITS ---
HPI - General General Date of Admission: 06/03/24 Date of Service: 06/03/24 Chief Complaint: Fever and Malaise. HPI Narrative SREE IZQUIERDO, is a 58 F with a past medical history of essential hypertension, morbid obesity; with BMI of 44.2 this admission, remote history of Right renal calculus (~1996); s/p Right ureteral stent by Dr. Reynoso, history of UTI, listed allergy to lisinopril (cough), listed allergy to sulfonamide antibiotics (rash), listed allergy to celecoxib (rash), OA; with history of partial Right knee replacement and recently diagnosed COVID-19 who presents to [facility] ER complaining of fever and malaise. Mrs. Izquierdo reports her acute symptoms began approximately May 17, 2024 with fever, headache, body aches and sore throat culminating in her being diagnosed with COVID-19 on May 21, 2024 with her then also testing positive for COVID-19 and then her father was also hospitalized with COVID-19 during that timeframe. Unfortunately, she has continued to run fevers with a temperature of 106 degrees Fahrenheit recorded at her home earlier today with chills and sweats for which she took ibuprofen at ~15:00 hours. She denies dysuria, hematuria or urinary frequency but she denies admit to nausea with three episodes of vomiting with bilious emesis. She additionally denies associated diarrhea, rash, cellulitic changes or other obvious source of infection. In the ER she was noted to have a UA positive for Acute Cystitis; with microscopic hematuria complicated by CT evidence of a Right proximal ureteral stone that has not moved since January 2024 with mild Right hydronephrosis, probable cholelithiasis and stable stones and calcifications of the Left mid kidney in addition to moderate diffuse fecal retention with a confirmatory Leukocytosis of 13.8K present on admission along with Hyperglycemia of 200 mg/dL present on admission suggestive underlying diabetes mellitus type-2 and she was then started on empiric IV Rocephin and admitted to the PCU for ongoing care for a stay that is expected to extend beyond 2 midnights. [facility] Medical History HTN (hypertension) Home Medications ?Medication ?Instructions ?Recorded ?Last Taken ?Type zolpidem 10 mg tablet (Ambien) 10 mg PO QHS PRN PRN Sleep 08/14/15 Unknown History cyclobenzaprine 10 mg tablet 10 - 20 mg PO QHS PRN Pain 12/25/22 Unknown History Allergy/AdvReac Type Severity Reaction Status Date / Time lisinopril Allergy Intermediate COUGH Verified 06/03/24 16:07 celecoxib (From Celebrex) Allergy Rash Verified 06/03/24 16:07 Sulfa (Sulfonamide Allergy Rash Verified 06/03/24 16:07 Antibiotics) Surgical History Status post right partial knee replacement Social History Smoking Status: Never smoker ROS ROS Narrative Review of Systems: Constitutional: Patient admits to fever, chills and malaise as per HPI. Eyes: Patient denies changes in vision or discharge from eyes. ENT: Patient denies runny nose, sore throat or ear pain. Resp: Patient admits to cough but she denies SOB. GI: Patient denies abdominal pain, nausea, vomiting or diarrhea. : Patient denies dysuria or hematuria. MSK: Patient denies arthralgias or myalgias. Skin: Patient denies rash, abscess or jaundice. Psych: Patient denies symptoms of uncontrolled depression or anxiety. Neuro: Patient denies headache, paresthesias or focal neurologic deficits. Allergy: Patient denies lip swelling, tongue swelling or urticaria. Hematology: Patient denies easy bleeding or easy bruisability. Endocrinology: Patient denies polyuria, polydipsia and polyphagia. 14 point ROS otherwise negative except for positives noted above in HPI. Vital Signs Vital Signs Vital Signs: 06/03/24 15:46 06/03/24 16:50 06/03/24 17:12 Temperature 103.1 F H 100.2 F H Temperature Source Oral Temporal Pulse Rate 154 H 111 H Respiratory Rate 22 H 21 H Blood Pressure 112/98 H 145/74 H Blood Pressure Mean 102 97 Pulse Ox 95 94 Oxygen Delivery Method Room Air Room Air Room Air 06/03/24 17:12 06/03/24 17:13 06/03/24 18:00 Temperature 100.2 F H 98.5 F Temperature Source Oral Oral Pulse Rate 102 H Respiratory Rate 16 Blood Pressure 111/72 Blood Pressure Mean 85 Pulse Ox 95 95 Oxygen Delivery Method Room Air 06/03/24 19:00 Temperature 98.2 F Temperature Source Oral Pulse Rate 100 Respiratory Rate 16 Blood Pressure 111/72 Blood Pressure Mean 85 Pulse Ox 100 Oxygen Delivery Method Room Air Weight Weight: 282 lb Body Mass Index (BMI) 44.1 Physical Exam Const alert, oriented x3 and no apparent distress Constitutional Narrative: Obese. General Appearance: cooperative HEENT normocephalic, head/scalp atraumatic, hearing grossly normal bilaterally and moist oral mucous membranes Eyes PERRL and EOMs intact bilaterally Neck no lymphadenopathy and supple Resp normal respiratory effort, no retractions, no use of accessory muscles and clear to auscultation bilaterally Cardio regular rate and regular rhythm GI normal to inspection, nondistended, normoactive bowel sounds, soft to palpation, non-tender and non-distended GI Narrative: Obese. Extremity normal to inspection, full ROM and no clubbing, cyanosis or edema Skin Skin Narrative: Patient has no evidence of rash, abscess or jaundice at this time. Neuro oriented x3, CN's II-XII intact bilaterally, moves all extremities and no focal motor deficits Sensorium / Orientation: awake, alert, oriented to person, oriented to place and oriented to time Speech: speech normal Psych affect normal Results Medical Records Data Attestation: I reviewed the patient's medical records Lab / Micro Data Attestation: I reviewed the patient's lab results. 06/03/24 16:13 06/03/24 16:13 Labs: Laboratory Results - last 24 hr 06/03/24 16:13: WBC 13.8 H, RBC 4.26, Hgb 13.1, Hct 38.9, MCV 91.3, MCH 30.8, MCHC 33.7, RDW Std Deviation 42.1, RDW Coeff of Porfirio 12.7, Plt Count 330, MPV 10.0, Immature Gran % (Auto) 0.700, Neut % (Auto) 92.4 H, Lymph % (Auto) 3.7 L, [place] % (Auto) 2.9, Eos % (Auto) 0.1, Baso % (Auto) 0.2, Absolute Neuts (auto) 12.7 H, Absolute Lymphs (auto) 0.51 L, Nucleated RBC % 0, Sodium 138, Potassium 3.8, Chloride 105, Carbon Dioxide 26.0, Anion Gap 8, BUN 15, Creatinine 0.92, Estim Creat Clear Calc 91.60, Est GFR (MDRD) Af Amer 80, Est GFR (MDRD) Non-Af 66, BUN/Creatinine Ratio 16.3, Glucose 200 H, Calcium 9.2 06/03/24 16:46: Lactic Acid 1.2 06/03/24 17:14: Urine Color Yellow, Urine Clarity Sl. Cloudy, Urine pH 6.0, Ur Specific [place] 1.010, Urine Protein 100 H, Urine Glucose (UA) Normal, Urine Ketones Negative, Urine Occult Blood 250 H, Urine Nitrite Positive H, Urine Bilirubin Negative, Urine Urobilinogen Normal, Ur Leukocyte Esterase 500 H, Urine RBC 5-10 SEEN, Urine WBC 10-25 SEEN, Ur Squamous Epith Cells 0-5 SEEN, Urine Bacteria 3+, WBC Casts 0-5 SEEN, Urine Mucus 0 SEEN Imaging Radiology Impression Chest X-Ray 06/03/24 16:05 IMPRESSION: Normal x-ray examination of the chest. Electronically Signed: Ra Lara MD at 16:34 EST , Abdomen/Pelvis CT 06/03/24 18:35 IMPRESSION: Limited by patient''s size. There has been no movement of a proximal right ureteral stone since January. Moderate right hydronephrosis. Probable cholelithiasis. Stable stones and calcifications of the mid left kidney. Moderate diffuse fecal retention. Electronically Signed: Ra Lara MD at 19:40 EST , Assessment & Plan Assessment/Plan (1) Acute cystitis with hematuria: (2) Kidney stone on right side: (3) Leukocytosis: QUALIFIERS: Leukocytosis type: unspecified Qualified Code(s): D 72.829 - Elevated white blood cell count, unspecified (4) Hyperglycemia: (5) History of COVID-19: (6) BMI greater than 40: PLAN: Plan 1. UA positive for Acute Cystitis; with microscopic hematuria complicated by CT evidence of a Right proximal ureteral stone that has not moved since January 2024 with mild Right hydronephrosis with Leukocytosis of 13.8K present on admission - Admit to PCU. Continue empiric IV Rocephin begun in the ER and await culture and sensitivity data. Give Tylenol prn for [id number] (level 1-5/10) pain or fever. Give Morphine IV prn for severe (level 6-10/10) pain. Give Zofran IV prn nausea and vomiting. Finally, we will consult Dr. Wright of the urology service to see this patient this admission for ureteral stent placement with help appreciated in advance. 2. Hyperglycemia of 200 mg/dL present on admission suggestive underlying diabetes mellitus type-2 complicating #1 - Check HgA1c to confirm suspicion. 3. Recently diagnosed COVID-19 approximately 2 weeks ago compounding #1 & #2 - Noted. 4. Morbid obesity; with BMI of 44.2 this admission adding to the medical complexity of #1 - #3 - Weight loss will be recommended. Check TSH. This complicates her case and may hamper recovery. 5. Essential hypertension - Hold any antihypertensives until infection outline in #1 has been neutralized. 6. Remote history of Right renal calculus; s/p Right ureteral stent by Dr. Reynoso - Noted. 7. History of UTI - Noted with recurrence this admission. 8. OA; with history of partial Right knee replacement - Stable. Give Tylenol prn. 9. Listed allergy to lisinopril (cough) - Noted. 10. Listed allergy to sulfonamide antibiotics (rash) - Noted. 11. Listed allergy to celecoxib (rash) - Noted. 12. DVT prophylaxis - SCD's only with impeding urologic procedure. Total time: Approximately (but not less than) 75 minutes. Charges/Coding Visit Charges Inpatient E&M: 66908 Init Hosp L3
--- NOTE | 2024-06-03 20:54 | CON.PCM.UR_ITS ---
Assessment & Plan Assessment/Plan (1) Hyperglycemia: (2) History of COVID-19: (3) Acute cystitis with hematuria: (4) Leukocytosis: QUALIFIERS: Leukocytosis type: unspecified Qualified Code(s): D 72.829 - Elevated white blood cell count, unspecified (5) UTI (urinary tract infection): (6) Urolithiasis: (7) Kidney stone on right side: PLAN: Plan Plan for cystoscopy and right stent placement tonight for obstruction leukocytosis and infection. Will plan to treat her stone at a separate setting once her infections cleared. HPI Consult Data Date of Consult: 06/03/24 HPI Narrative Reason for Consultation: Obstructing right kidney stone HPI Narrative: SREE IZQUIERDO, is a 58 F who presents to the hospital with leukocytosis, high fevers, CT scan was done that demonstrated she has a stone in the proximal right ureter with hydronephrosis. Given the situation with ongoing high fevers elevated white blood count and obstructing stone is very suspicious that she may have urosepsis and an infected kidney stone so plan to take her to surgery today immediately for cystoscopy and right stent placement. She is being admitted for her infection. [facility] Medical History HTN (hypertension) Home Medications ?Medication ?Instructions ?Recorded ?Last Taken ?Type zolpidem 10 mg tablet (Ambien) 10 mg PO QHS PRN PRN Sleep 08/14/15 Unknown History cyclobenzaprine 10 mg tablet 10 - 20 mg PO QHS PRN Pain 12/25/22 Unknown History Allergy/AdvReac Type Severity Reaction Status Date / Time lisinopril Allergy Intermediate COUGH Verified 06/03/24 16:07 celecoxib (From Celebrex) Allergy Rash Verified 06/03/24 16:07 Sulfa (Sulfonamide Allergy Rash Verified 06/03/24 16:07 Antibiotics) Surgical History Status post right partial knee replacement Social History Smoking Status: Never smoker ROS Eyes Eyes: Denies blurry vision or change in vision ENT HEENT: Reports none Cardiovascular Cardiovascular: Denies chest pain or palpitations Respiratory/Chest Respiratory/Chest: Denies cough or shortness of breath with exertion Gastrointestinal Gastrointestinal: Denies abdominal pain, constipation or diarrhea Musculoskeletal Musculoskeletal: Denies back pain, joint stiffness or joint swelling Integumentary Integumentary: Denies dry skin, jaundice, lesions or rash Neurologic Neurologic: Denies confusion, syncope or weakness Psychiatric Psychiatric: Reports none; Denies anxiety or depression Endocrine Endocrinology: Denies excessive sweating, fatigue or flushing Hematologic/Lymphatic Hematologic/Lymphatic: Denies anemia, easy bleeding or easy bruising Physical Exam Const alert and oriented x3 General Appearance: cooperative HEENT normocephalic and head/scalp atraumatic Eyes PERRL and EOMs intact bilaterally Neck supple, no JVD and no carotid bruits Resp normal respiratory effort, normal air movement and clear to auscultation bilaterally Cardio regular rate and no murmurs GI normal to inspection, nondistended, normoactive bowel sounds and soft to palpation Extremity normal capillary refill General Extremity: no tenderness to palpation of joints or extremities; Negative for edema Skin no rashes or lesions noted and no wounds General Skin Exam: no breakdown Neuro CN's II-XII intact bilaterally Psych affect normal Appearance: appropriate Medical Records Data Attestation: I reviewed the patient's medical records Lab / Micro Data 06/03/24 16:13 06/03/24 16:13 Labs: Laboratory Results - last 24 hr 06/03/24 16:13: WBC 13.8 H, RBC 4.26, Hgb 13.1, Hct 38.9, MCV 91.3, MCH 30.8, MCHC 33.7, RDW Std Deviation 42.1, RDW Coeff of Porfirio 12.7, Plt Count 330, MPV 10.0, Immature Gran % (Auto) 0.700, Neut % (Auto) 92.4 H, Lymph % (Auto) 3.7 L, [place] % (Auto) 2.9, Eos % (Auto) 0.1, Baso % (Auto) 0.2, Absolute Neuts (auto) 12.7 H, Absolute Lymphs (auto) 0.51 L, Nucleated RBC % 0, Sodium 138, Potassium 3.8, Chloride 105, Carbon Dioxide 26.0, Anion Gap 8, BUN 15, Creatinine 0.92, Estim Creat Clear Calc 91.60, Est GFR (MDRD) Af Amer 80, Est GFR (MDRD) Non-Af 66, BUN/Creatinine Ratio 16.3, Glucose 200 H, Calcium 9.2 06/03/24 16:46: Lactic Acid 1.2 06/03/24 17:14: Urine Color Yellow, Urine Clarity Sl. Cloudy, Urine pH 6.0, Ur Specific [place] 1.010, Urine Protein 100 H, Urine Glucose (UA) Normal, Urine Ketones Negative, Urine Occult Blood 250 H, Urine Nitrite Positive H, Urine Bilirubin Negative, Urine Urobilinogen Normal, Ur Leukocyte Esterase 500 H, Urine RBC 5-10 SEEN, Urine WBC 10-25 SEEN, Ur Squamous Epith Cells 0-5 SEEN, Urine Bacteria 3+, WBC Casts 0-5 SEEN, Urine Mucus 0 SEEN Imaging Radiology Impression Chest X-Ray 06/03/24 16:05 IMPRESSION: Normal x-ray examination of the chest. Electronically Signed: Ra Lara MD at 16:34 EST , Abdomen/Pelvis CT 06/03/24 18:35 IMPRESSION: Limited by patient''s size. There has been no movement of a proximal right ureteral stone since January. Moderate right hydronephrosis. Probable cholelithiasis. Stable stones and calcifications of the mid left kidney. Moderate diffuse fecal retention. Electronically Signed: Ra Lara MD at 19:40 EST ,
[2024-06-03] MEDS: 0.9% Normal Saline (1000mL) 1,000 ML 150 ML IV (21:05)
--- NOTE | 2024-06-03 21:16 | PCM.PRE.AN2 ---
ASA Classification* ASA Classification ASA Classification: 3 Assessment & Plan Anesthesia* Anesthesia Assessment Anesthesia Assessment: Discussed sedation and/or anesthesia options, risks, benefits, and alternatives with patient/parents/legal guardian/POA. Questions invited. The patient/parents/legal guardian/POA seems to understand and agrees to proceed with anesthesia plan. Reviewed the physical assessment, medical history, allergy history and patient home medications list prior to surgery/procedure/anesthetic and documented any changes. Performed airway and anesthesia risk assessments. Anesthesia Type Anesthesia Type: MAC History Source History Obtained from:: Patient and Chart Anesthesia Focused Assessment* Temperature: 98.1 F Pulse Rate: 94 Blood Pressure: 112/69 Respiratory Rate: 16 Pulse Ox: 95 Oxygen Delivery Method: Room Air Focused Labs Anesthesia Preop lab: CBC WBC 13.8 K/mm3 (4.4-11.0) H 06/03/24 16:13 RBC 4.26 M/mm3 (4.2-5.4) 06/03/24 16:13 Hgb 13.1 g/dL (12.0-15.0) 06/03/24 16:13 Hct 38.9 % (37-47) 06/03/24 16:13 Plt Count 330 K/mm3 (150-450) 06/03/24 16:13 CHEMISTRY Potassium 3.8 mmol/L (3.5-5.1) 06/03/24 16:13 Sodium 138 mmol/L (136-145) 06/03/24 16:13 BUN 15 mg/dL (7-18) 06/03/24 16:13 Creatinine 0.92 mg/dL (0.55-1.02) 06/03/24 16:13 Glucose 200 mg/dL (74-106) H 06/03/24 16:13 COAG PT 13.2 SECONDS (11.7-14.9) 03/07/18 12:15 Pre-Assessment Diagnosis/Proposed Procedure Planned Operative Procedure(s): Cystoscopy and stent placement Anesthesia History 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 When Was Last Pacemaker Check QUESTION #4 FULL TEXT: You/Your Family Experience fever (hyperthermia) with Anesthesia Last Oral Intake Last Oral intake: Last Oral Intake NPO since 20:45 06/03/24 20:56 Meds taken in AM with sips of No 06/03/24 20:56 water? 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 Female HX of Motion Sickness HX of N/V After Surgery Non-Smoker Duration of Surgery greater than 60 minutes Number of Risk Factors PONV Score Height & Weight Height & Weight: Anesthesia: Height & Weight Height 5 ft 7 in 06/03/24 20:56 Weight: 127.913 kg 06/03/24 20:56 Body Mass Index (BMI) 44.1 06/03/24 20:56 Respiratory Assessment Respiratory Assessment - assistant teacher primary: Respiratory Tract Infection Hx - assistant teacher primary Hx Respiratory Tract Infection Yes: covid--tested positve 06/03/24 20:56 05/20 STOP Sleep Apnea STOP Sleep Apnea - assistant teacher primary: STOP Sleep Apnea - assistant teacher primary Hx Hypertension No 06/03/24 20:56 Hx Sleep Apnea No 06/03/24 20:56 CPAP No 03/14/16 14:34 BIPAP Do you snore loudly (louder No 06/03/24 20:56 than talking or can be heard Do you often feel tired/ No 06/03/24 20:56 fatigued/ sleepy during daytime? Has anyone observed you stop No 06/03/24 20:56 breathing during sleep? STOP Results Negative 06/03/24 20:56 QUESTION #5 FULL TEXT : Do you snore loudly (louder than talking or can be heard through closed doors)? 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 Specify any problems Hx of Preganancy in last 3 Months Nurse Filling Out Transfusion & Questions: Date: Time: Patient unable to answer at this time (ie. confused, unrespo /Reproduction History /Reproductive History - assistant teacher primary: /Reproductive Hx- assistant teacher primary Hx Now No 06/03/24 20:56 Gestational Age (in weeks): EDC: Hx Hx Para Hx Section SAB Active Medications Active Medications: Current Medications Generic Name Dose Route Start Last Admin Trade Name Freq PRN Reason Stop Dose Admin Sodium Chloride 1,000 mls @ 150 mls/hr 06/03/24 20:47 06/03/24 21:05 IV 06/04/24 03:26 150 mls/hr .[id number] TRUDY Administration Protocol [facility] Medical History HTN (hypertension) Home Medications ?Medication ?Instructions ?Recorded ?Last Taken ?Type zolpidem 10 mg tablet (Ambien) 10 mg PO QHS PRN PRN Sleep 08/14/15 Unknown History cyclobenzaprine 10 mg tablet 10 - 20 mg PO QHS PRN Pain 12/25/22 Unknown History Allergy/AdvReac Type Severity Reaction Status Date / Time lisinopril Allergy Intermediate COUGH Verified 06/03/24 16:07 celecoxib (From Celebrex) Allergy Rash Verified 06/03/24 16:07 Sulfa (Sulfonamide Allergy Rash Verified 06/03/24 16:07 Antibiotics) Surgical History Status post right partial knee replacement Social History Smoking Status: Never smoker Review of Systems (Anesthesia) ROS Narrative System reviewed and no additional complaints, except as documented.
--- NOTE | 2024-06-03 21:34 | PCM.PRE.AN2 ---
ASA Classification* ASA Classification ASA Classification: 3 Assessment & Plan Anesthesia* Anesthesia Assessment Anesthesia Assessment: Discussed sedation and/or anesthesia options, risks, benefits, and alternatives with patient/parents/legal guardian/POA. Questions invited. The patient/parents/legal guardian/POA seems to understand and agrees to proceed with anesthesia plan. Reviewed the physical assessment, medical history, allergy history and patient home medications list prior to surgery/procedure/anesthetic and documented any changes. Performed airway and anesthesia risk assessments. Anesthesia Type Anesthesia Type: MAC Anesthesia Focused Assessment* Temperature: 98.1 F Pulse Rate: 94 Blood Pressure: 112/69 Respiratory Rate: 16 Pulse Ox: 95 Airway Assessment Mouth opens: >3 cm Mallampati Score: I Teeth Condition: Caps/Crowns (Several crowns. all tight ) and Missing (molar) Neck Range of motion (ROM): Full ROM Focused Labs Anesthesia Preop lab: CBC WBC 13.8 K/mm3 (4.4-11.0) H 06/03/24 16:13 RBC 4.26 M/mm3 (4.2-5.4) 06/03/24 16:13 Hgb 13.1 g/dL (12.0-15.0) 06/03/24 16:13 Hct 38.9 % (37-47) 06/03/24 16:13 Plt Count 330 K/mm3 (150-450) 06/03/24 16:13 CHEMISTRY Potassium 3.8 mmol/L (3.5-5.1) 06/03/24 16:13 Sodium 138 mmol/L (136-145) 06/03/24 16:13 BUN 15 mg/dL (7-18) 06/03/24 16:13 Creatinine 0.92 mg/dL (0.55-1.02) 06/03/24 16:13 Glucose 200 mg/dL (74-106) H 06/03/24 16:13 COAG PT 13.2 SECONDS (11.7-14.9) 03/07/18 12:15 Pre-Assessment Diagnosis/Proposed Procedure Planned Operative Procedure(s): Cystoscopy and stent placement Anesthesia History Anesthesia History - meter changes records clerk: Anesthesia History - meter changes records clerk Hx Hospitalization Yes 03/14/16 10:24 Any Problems With Anesthesia No 06/03/24 20:56 Cholinesterase deficiency No 06/03/24 20:56 You/Your Family Experience No 06/03/24 20:56 fever (hyperthermia) with Relationship Recent Exposure to Contagious Yes: see above 06/03/24 20:56 Disease Does patient have nerve No 06/03/24 20:56 stimulator Patient instructed to have No 06/03/24 20:56 device shut off --Does patient have Pacemaker No 06/03/24 20:56 or ICD? When Was Last Pacemaker Check QUESTION #4 FULL TEXT: You/Your Family Experience fever (hyperthermia) with Anesthesia Last Oral Intake Last Oral intake: Last Oral Intake NPO since 20:45 06/03/24 20:56 Meds taken in AM with sips of No 06/03/24 20:56 water? 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 - meter changes records clerk: PONV - meter changes records clerk Female HX of Motion Sickness HX of N/V After Surgery Non-Smoker Duration of Surgery greater than 60 minutes Number of Risk Factors PONV Score Height & Weight Height & Weight: Anesthesia: Height & Weight Height 5 ft 7 in 06/03/24 20:56 Weight: 127.913 kg 06/03/24 20:56 Body Mass Index (BMI) 44.1 06/03/24 20:56 Respiratory Assessment Respiratory Assessment - meter changes records clerk: Respiratory Tract Infection Hx - meter changes records clerk Hx Respiratory Tract Infection Yes: covid--tested positve 06/03/24 20:56 11 STOP Sleep Apnea STOP Sleep Apnea - meter changes records clerk: STOP Sleep Apnea - meter changes records clerk Hx Hypertension No 06/03/24 20:56 Hx Sleep Apnea No 06/03/24 20:56 CPAP No 03/14/16 14:34 BIPAP Do you snore loudly (louder No 06/03/24 20:56 than talking or can be heard Do you often feel tired/ No 06/03/24 20:56 fatigued/ sleepy during daytime? Has anyone observed you stop No 06/03/24 20:56 breathing during sleep? STOP Results Negative 06/03/24 20:56 QUESTION #5 FULL TEXT : Do you snore loudly (louder than talking or can be heard through closed doors)? 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 Specify any problems Hx of Preganancy in last 3 Months Nurse Filling Out Transfusion & Questions: Date: Time: Patient unable to answer at this time (ie. confused, unrespo /Reproduction History /Reproductive History - meter changes records clerk: /Reproductive Hx- meter changes records clerk Hx Now No 06/03/24 20:56 Gestational Age (in weeks): EDC: Hx Hx Para Hx Section SAB Active Medications Active Medications: Current Medications Generic Name Dose Route Start Last Admin Trade Name Freq PRN Reason Stop Dose Admin Sodium Chloride 1,000 mls @ 150 mls/hr 06/03/24 20:47 06/03/24 21:05 IV 06/04/24 03:26 150 mls/hr .[id number] TRUDY Administration Protocol [facility] Medical History HTN (hypertension) Home Medications ?Medication ?Instructions ?Recorded ?Last Taken ?Type zolpidem 10 mg tablet (Ambien) 10 mg PO QHS PRN PRN Sleep 08/14/15 Unknown History cyclobenzaprine 10 mg tablet 10 - 20 mg PO QHS PRN Pain 12/25/22 Unknown History Allergy/AdvReac Type Severity Reaction Status Date / Time lisinopril Allergy Intermediate COUGH Verified 06/03/24 16:07 celecoxib (From Celebrex) Allergy Rash Verified 06/03/24 16:07 Sulfa (Sulfonamide Allergy Rash Verified 06/03/24 16:07 Antibiotics) Surgical History Status post right partial knee replacement Social History Smoking Status: Never smoker Review of Systems (Anesthesia) ROS Narrative System reviewed and no additional complaints, except as documented.
--- NOTE | 2024-06-03 21:41 | PCM.OPRPT ---
Operative Report (Standard) Operative Information Surgery/Procedure Performed: Cystoscopy right retrograde pyelogram and right stent placement Surgeon: Tomás Wright Date of Procedure: 06/03/24 Procedure Start Time: 21:33 Procedure Stop Time: 21:41 Pre-Operative Diagnosis: Possible infection obstructing right proximal ureteral calculi Post-Operative Diagnosis: The same Select all DRAINS/GRAFTS/IMPLANTS that apply: Drains Drain details: 6 [place] Islander by 26 cm stent right side Type of Anesthesia: General Estimated Blood Loss: None Specimen collected: Yes Description of specimen(s) removed: Urine for culture right side Description of surgery: Patient was taken back to the operating room at this with induction of anesthesia MAC local she was placed in dorsolithotomy position. 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 I then put the wire and coiled in the right kidney and over the wire advanced a stent it was 6 [place]er by 26 cm stent once the stent was a good position and pulled the wire the stent coil in the renal pelvis and the bladder in good position we then collected urine from the stent sent off for culture and bladder was drained patient acetic was reversed and should be admitted to the hospital for possible urosepsis. 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
--- NOTE | 2024-06-03 21:49 | PCM.POST.ANE ---
Anesthesia: Postop Eval I Current Vital Signs Temperature: 96.9 F Pulse Rate: 92 Blood Pressure: 127/46 Respiratory Rate: 16 Pulse Ox: 97 Oxygen Delivery Method: Room Air Assessment Airway patent: Yes Spontaneous unlabored respirations: Yes Mental status: Awake and Calm nausea: No Vomiting: No Anesthesia Complication: No Fluid Hydration Crystalloid volume administer (ml): 400 Total IV fluid infused: 400 Progress Note Anesthesia document: Postop Eval 1 completed: Yes
--- NOTE | 2024-06-03 22:00 | PCM.POSTANE2 ---
Anesthesia Postop Eval I Sum Postop Eval Completion status Anesthesia document: Postop Eval 1 completed: Yes Anesthesia Postop Eval I Summary Anesthesia Postop Eval I Summary: Anesthesia Postop Eval I: Assessment Summary Airway patent Yes 06/03/24 22:00 Spontaneous unlabored Yes 06/03/24 22:00 respirations Mental status Awake,Calm 06/03/24 22:00 nausea No 06/03/24 22:00 Vomiting No 06/03/24 22:00 Anesthesia Postop Eval I: Fluid Summary Crystalloid volume administer 400 06/03/24 22:00 (ml) Colloids volume administered ( ml) Blood Product volume administered (ml) Total IV fluid infused 400 06/03/24 22:00 Anesthesia Postop Eval I: Summary Notes Anesthesia Complication No 06/03/24 22:00 Anesthesia Complication Comment: Post-operative progress note Anesthesia: Postop Eval II Evaluation Mental status: Awake and Calm Pain Level: 0 nausea: No Vomiting: No Complications Anesthesia Complication: No
[2024-06-03] MEDS: Lactobacillis Acidophilus 1 CAP PO (23:05)
[2024-06-03] MEDS: cycloBENZAPRine HCl 10 MG Tablet PO (23:05)
[2024-06-03] MEDS: Zolpidem Tartrate 5 MG Tablet PO (23:05)
[2024-06-04] MEDS: Morphine 2 MG/ML Syringe IV (02:21)
[2024-06-04 03:30] VITALS: BMI 44.1
[2024-06-04] MEDS: Acetaminophen 325 MG Tablet 650 MG PO ×2 (05:41→12:04)
[2024-06-04 06:36] LABS: Absolute Lymphocyte Count 0.99 X10^3/uL (0.83-4.51); Absolute Neutrophil Count 8.3 X10^3/uL (2.0-7.7); Basophil# 0.02 X10^3/uL; Basophil% 0.2 % (0-1); Eosinophil# 0.05 X10^3/uL; Eosinophils% 0.5 % (0-5); Hematocrit 35.4 % (37-47); Hemoglobin 11.5 g/dL (12.0-15.0); Lymphocyte # 0.99 X10^3/ul (0.83-4.51); Lymphocyte % 9.7 % (19-41); Mean Corp Hgb Conc 32.5 g/dL (32-36); Mean Corpuscular Hgb 30.6 pg (27.0-32.0); Mean Corpuscular Volume 94.1 fL (81-99); Mean Platelet Vol. 10.1 fl (6.2-12.0); Monocyte% 7.9 % (0-10); NRBC Flagged by Analyzer 0 % (0-5); Neutrophil # 8.26 X10^3/uL (2.7-7.7); Neutrophil % 81.3 % (47-70); Platelet Count 271 K/mm3 (150-450); RBC Distribution Width CV 12.9 % (11.6-14.6); RBC Distribution Width SD 44.4 fl (35.1-43.9); Red Blood Count 3.76 M/mm3 (4.2-5.4); White Blood Count 10.2 K/mm3 (4.4-11.0)
[2024-06-04 06:55] LABS: ALB/GLOB Ratio 0.6 RATIO (0.9-2.4); AST(SGOT) 10 U/L (15-37); Alanine Aminotransfer ALT/SGPT 13 U/L (13-56); Albumin, Serum 2.7 g/dL (3.2-5.0); Alkaline Phosphatase 91 U/L (45-117); Anion Gap 7 (5-15); BUN 11 mg/dL (7-18); BUN/Creat Ratio 15.6 RATIO (10-20); Calcium,Total 8.9 mg/dL (8.5-10.1); Chloride 104 mmol/L (98-107); Creatinine, Serum 0.71 mg/dL (0.55-1.02); EST Glomerular Filtration Rate 90 mL/min (>60); Est Glom Filt Rate - Afr Amer 109 mL/min (>60); Estimated Creatinine Clearance 118.68 ml/min; Globulin 4.2 g/dL (2.2-4.2); Glucose 143 mg/dL (74-106); Magnesium 2.1 mg/dL (1.6-2.6); Potassium 3.3 mmol/L (3.5-5.1); Protein, Total 6.9 g/dL (6.4-8.2); Sodium Level 139 mmol/L (136-145)
--- NOTE | 2024-06-04 07:23 | CON.PCM.UR_ITS ---
HPI Consult Data Date of Consult: 06/04/24 HPI Narrative Reason for Consultation: Status post stent HPI Narrative: SREE IZQUIERDO, is a 58 F who presents to the hospital with very high fevers obstructing stone in the proximal right ureter she underwent a cystoscopy and stent placement last night for possible infection cultures were sent from the kidney. Will see if cultures come back positive but she did have obstruction fever is resolved this morning. Patient is stable on discharge she can follow- up with me and we will arrange for outpatient ureteroscopy and laser of the stone and stent removal as an outpatient on discharge she has a follow-up in my office. [facility] Medical History HTN (hypertension) Home Medications ?Medication ?Instructions ?Recorded ?Last Taken ?Type zolpidem 10 mg tablet (Ambien) 10 mg PO QHS PRN PRN Sleep 08/14/15 Unknown History cyclobenzaprine 10 mg tablet 10 - 20 mg PO QHS PRN Pain 12/25/22 Unknown History Allergy/AdvReac Type Severity Reaction Status Date / Time lisinopril Allergy Intermediate COUGH Verified 06/03/24 16:07 celecoxib (From Celebrex) Allergy Rash Verified 06/03/24 16:07 Sulfa (Sulfonamide Allergy Rash Verified 06/03/24 16:07 Antibiotics) Surgical History Status post right partial knee replacement Social History Smoking Status: Never smoker Lab / Micro Data 06/04/24 06:12 06/04/24 06:12 Labs: Laboratory Results - last 24 hr 06/03/24 16:13: WBC 13.8 H, RBC 4.26, Hgb 13.1, Hct 38.9, MCV 91.3, MCH 30.8, MCHC 33.7, RDW Std Deviation 42.1, RDW Coeff of Porfirio 12.7, Plt Count 330, MPV 10.0, Immature Gran % (Auto) 0.700, Neut % (Auto) 92.4 H, Lymph % (Auto) 3.7 L, [place] % (Auto) 2.9, Eos % (Auto) 0.1, Baso % (Auto) 0.2, Absolute Neuts (auto) 12.7 H, Absolute Lymphs (auto) 0.51 L, Nucleated RBC % 0, Sodium 138, Potassium 3.8, Chloride 105, Carbon Dioxide 26.0, Anion Gap 8, BUN 15, Creatinine 0.92, Estim Creat Clear Calc 91.60, Est GFR (MDRD) Af Amer 80, Est GFR (MDRD) Non-Af 66, BUN/Creatinine Ratio 16.3, Glucose 200 H, Calcium 9.2, Folate 12.80, TSH 1.030 06/03/24 16:46: Lactic Acid 1.2 06/03/24 17:14: Urine Color Yellow, Urine Clarity Sl. Cloudy, Urine pH 6.0, Ur Specific [place] 1.010, Urine Protein 100 H, Urine Glucose (UA) Normal, Urine Ketones Negative, Urine Occult Blood 250 H, Urine Nitrite Positive H, Urine Bilirubin Negative, Urine Urobilinogen Normal, Ur Leukocyte Esterase 500 H, Urine RBC 5-10 SEEN, Urine WBC 10-25 SEEN, Ur Squamous Epith Cells 0-5 SEEN, Urine Bacteria 3+, WBC Casts 0-5 SEEN, Urine Mucus 0 SEEN 06/04/24 06:12: WBC 10.2, RBC 3.76 L, Hgb 11.5 L, Hct 35.4 L, MCV 94.1, MCH 30.6, MCHC 32.5, RDW Std Deviation 44.4 H, RDW Coeff of Porfirio 12.9, Plt Count 271, MPV 10.1, Immature Gran % (Auto) 0.400, Neut % (Auto) 81.3 H, Lymph % (Auto) 9.7 L, [place] % (Auto) 7.9, Eos % (Auto) 0.5, Baso % (Auto) 0.2, Absolute Neuts (auto) 8.3 H, Absolute Lymphs (auto) 0.99, Nucleated RBC % 0, Sodium 139, Potassium 3.3 L, Chloride 104, Carbon Dioxide 29.0, Anion Gap 7, BUN 11, Creatinine 0.71, Estim Creat Clear Calc 118.68, Est GFR (MDRD) Af Amer 109, Est GFR (MDRD) Non-Af 90, BUN/Creatinine Ratio 15.6, Glucose 143 H, Calcium 8.9, Phosphorus 3.0, Magnesium 2.1, Total Bilirubin 0.70, AST 10 L, ALT 13, Alkaline Phosphatase 91, Total Protein 6.9, Albumin 2.7 L, Globulin 4.2, Albumin/Globulin Ratio 0.6 L Imaging Radiology Impression Chest X-Ray 06/03/24 16:05 IMPRESSION: Normal x-ray examination of the chest. Electronically Signed: Ra Lara MD at 16:34 EST , Abdomen/Pelvis CT 06/03/24 18:35 IMPRESSION: Limited by patient''s size. There has been no movement of a proximal right ureteral stone since January. Moderate right hydronephrosis. Probable cholelithiasis. Stable stones and calcifications of the mid left kidney. Moderate diffuse fecal retention. Electronically Signed: Ra Lara MD at 19:40 EST ,
[2024-06-04 07:32] VITALS: O2SAT 94
[2024-06-04 07:38] LABS: Hemoglobin A1c 5.4 % (3.8-5.6)
[2024-06-04 09:28] LABS: Vitamin B12 329 pg/mL (211-911)
[2024-06-04 09:41] VITALS: BP 129/80; PULSE 84; RESP 17; TEMP 37.1; O2SAT 98
[2024-06-04] MEDS: Lactobacillis Acidophilus 1 CAP PO ×2 (09:46→14:30)
[2024-06-04] MEDS: Cholecalciferol (Vit D3) 125 MCG CAPSULE (5,000 UNITS) PO (09:47)
[2024-06-04] MEDS: Ascorbic Acid 500 MG Tablet 1000 MG PO (09:47)
[2024-06-04] MEDS: Zinc Sulfate 50 mg zinc (220 mg) ORAL capsule PO (09:47)
--- NOTE | 2024-06-04 10:05 | CASEMGMT ---
RN CM Face to Face with patient for initial transition planning/care coordination assessment. RN CM introduced self and role at [facility]. Patient lying in bed, alert and oriented. Patient willing to participate in assessment and is able to answer all questions appropriately. Care providers, pharmacy, and demographics verified. Strata: 1 PCP: Neel CLASSIFICATION CLERK Specialists: none Preferred Pharmacy: [facility] Insurance: [facility] Prescription Benefit: yes Living Will/HPOA: none LNOK: , son Living Arrangements: Patient lives with , son, and father(whom they care for) in a 2 story home. Patient is independent and able to ambulate stairs. Transportation: self, family DME/HHC: Patient states they have grab bars at home. No previous HHC or SNF. Patient wishes to discharge home, denies need for home health at this time. Patient states she has no further needs or concerns at this time. CM to follow for discharge planning needs that may arise. Disposition Plan: Patient to discharge home with family support and follow-up plans in place. Love REGALADO, RN, CM
[2024-06-04] MEDS: Potassium Chloride Oral Tablet 20 MEQ 40 MEQ PO (11:59)
--- NOTE | 2024-06-04 13:28 | DCINST_ITS ---
Discharge Instructions Diet Discharge Diet: No restrictions DC O2, CPAP, BIPAP needs Additional Home O2 Discharge instructions: No Dressing / Incision Discharge Activity: Return to Normal Activity Weight Bearing Status: Full weight bearing Follow Up Care Test Results: Test results from this visit will be discussed in further detail at your follow- up appointment, if applicable. Discharge Plan Admission Admit Date/Time: 06/03/24 20:41 Primary Reason for Your Visit: Right stent placement Attending Provider: Kevyn Haas Primary Care Provider: Laura Shaikh NP Consulting Providers: Tomás Wright; Jaiden Prakash Discharge Orders/Prescriptions Prescriptions: New cefdinir 300 mg capsule 300 mg PO BID Qty: 20 0RF Continued zolpidem [Ambien] 10 MG tablet 10 mg PO QHS PRN PRN (Reason: Sleep) cyclobenzaprine 10 mg tablet 10 - 20 mg PO QHS PRN (Reason: Pain) Patient Comments: take 1 tablet by mouth three times a day if needed Referrals / Follow Up: Tomás Wright MD [Med Staff - Active Staff] - See Referral Note (As directed) Laura Shaikh NP, FIELD ORGANIZER-C [Primary Care Provider] - Disposition Disposition (needs filled in before D/C Order can be placed): Home, Self Care
--- NOTE | 2024-06-04 13:40 | DS.PCM_ITS ---
Providers Date of Admission: 06/03/24 Date of Discharge: 06/04/24 Primary Care Physician: YAAKOV Fox Reason For Visit: SEPTIC KIDNEY STONE Diagnosis Discharge Diagnosis (1) Acute cystitis with hematuria: Status: Acute Code(s): N30.01 - Acute cystitis with hematuria (2) Kidney stone on right side: Status: Acute Code(s): N20.0 - Calculus of kidney (3) Leukocytosis: Status: Acute Code(s): D72.829 - Elevated white blood cell count, unspecified Qualifiers: Leukocytosis type: unspecified Qualified Code(s): D72.829 - Elevated white blood cell count, unspecified (4) Hyperglycemia: Status: Acute Code(s): R73.9 - Hyperglycemia, unspecified (5) History of COVID-19: Status: Acute Code(s): Z86.16 - Personal history of COVID-19 (6) BMI greater than 40: Status: Acute Plan 1. Proximal right ureteral stone with right hydronephrosis #2 acute cystitis secondary to right ureteral stone #3 class III obesity #4 essential hypertension Medications at Discharge Home Medications zolpidem 10 mg tablet (Ambien) 10 mg PO QHS PRN PRN Sleep 08/14/15 cyclobenzaprine 10 mg tablet 10 - 20 mg PO QHS PRN Pain 12/25/22 cefdinir 300 mg capsule 300 mg PO BID #20 caps 06/04/24 Hospital Course Operations - (Cystoscopy with right retrograde pyelogram and right stent placement) Procedures None Summary of Care Provided Minutes Spent on Discharge: 30 Hospital Course: This 58-year-old white female was seen in the emergency room at [facility] with complaints of chills, malaise and sweats. Workup in the emergency room included a UA which was positive for acute cystitis, CT of the abdomen pelvis was obtained which showed a right proximal ureteral stone with mild right hydronephrosis. Patient was started on IV Rocephin and admitted to PCU, she was seen in consultation by urology who performed a retrograde pyelogram, cystoscopy, and placement of a right ureteral stent. Patient's repeat CBC in the next day showed a normal white blood cell count. On 06/04/2024, patient was seen and examined: On examination she appeared in good health and spirits, she does not appear to be in any distress. Vital signs as documented. Skin warm and dry and without overt rashes. Neck without JVD, thyroid appears normal, trachea is midline, neck is supple. Lungs clear, normal air movement was noted. Heart exam notable for regular rhythm, normal sounds and absence of murmurs, rubs or gallops. Abdomen unremarkable and without evidence of organomegaly, masses, or abdominal aortic enlargement, bowel sounds are present in all 4 quadrants, no abdominal tenderness was noted. Extremities nonedematous, no cyanosis was noted, no clubbing was noted. Neuro: Cranial nerves II through XII are grossly intact, no focal motor deficits were noted, sensation to light touch and pinprick is intact, motor exam 5/5 throughout. Psych: Patient is alert and oriented x3, she does not appear anxious or depressed, she does not appear agitated. Patient was discharged home in stable condition on 06/04/2024. Weight / BMI Weight Weight: 127.9 kg Body Mass Index (BMI) 44.1 ABG / Lab / Microbiology Data 06/04/24 06:12 06/04/24 06:12 Laboratory: Laboratory Results - last 24 hr 06/03/24 16:13: WBC 13.8 H, RBC 4.26, Hgb 13.1, Hct 38.9, MCV 91.3, MCH 30.8, MCHC 33.7, RDW Std Deviation 42.1, RDW Coeff of Porfirio 12.7, Plt Count 330, MPV 10.0, Immature Gran % (Auto) 0.700, Neut % (Auto) 92.4 H, Lymph % (Auto) 3.7 L, [place] % (Auto) 2.9, Eos % (Auto) 0.1, Baso % (Auto) 0.2, Absolute Neuts (auto) 12.7 H, Absolute Lymphs (auto) 0.51 L, Nucleated RBC % 0, Sodium 138, Potassium 3.8, Chloride 105, Carbon Dioxide 26.0, Anion Gap 8, BUN 15, Creatinine 0.92, Estim Creat Clear Calc 91.60, Est GFR (MDRD) Af Amer 80, Est GFR (MDRD) Non-Af 66, BUN/Creatinine Ratio 16.3, Glucose 200 H, Calcium 9.2, Folate 12.80, TSH 1.030 06/03/24 16:46: Lactic Acid 1.2 06/03/24 17:14: Urine Color Yellow, Urine Clarity Sl. Cloudy, Urine pH 6.0, Ur Specific [place] 1.010, Urine Protein 100 H, Urine Glucose (UA) Normal, Urine Ketones Negative, Urine Occult Blood 250 H, Urine Nitrite Positive H, Urine Bilirubin Negative, Urine Urobilinogen Normal, Ur Leukocyte Esterase 500 H, Urine RBC 5-10 SEEN, Urine WBC 10-25 SEEN, Ur Squamous Epith Cells 0-5 SEEN, Urine Bacteria 3+, WBC Casts 0-5 SEEN, Urine Mucus 0 SEEN 06/04/24 06:12: WBC 10.2, RBC 3.76 L, Hgb 11.5 L, Hct 35.4 L, MCV 94.1, MCH 30.6, MCHC 32.5, RDW Std Deviation 44.4 H, RDW Coeff of Porfirio 12.9, Plt Count 271, MPV 10.1, Immature Gran % (Auto) 0.400, Neut % (Auto) 81.3 H, Lymph % (Auto) 9.7 L, [place] % (Auto) 7.9, Eos % (Auto) 0.5, Baso % (Auto) 0.2, Absolute Neuts (auto) 8.3 H, Absolute Lymphs (auto) 0.99, Nucleated RBC % 0, Sodium 139, Potassium 3.3 L, Chloride 104, Carbon Dioxide 29.0, Anion Gap 7, BUN 11, Creatinine 0.71, Estim Creat Clear Calc 118.68, Est GFR (MDRD) Af Amer 109, Est GFR (MDRD) Non-Af 90, BUN/Creatinine Ratio 15.6, Glucose 143 H, Hemoglobin A1c 5.4, Calcium 8.9, Phosphorus 3.0, Magnesium 2.1, Total Bilirubin 0.70, AST 10 L, ALT 13, Alkaline Phosphatase 91, Total Protein 6.9, Albumin 2.7 L, Globulin 4.2, Albumin/Globulin Ratio 0.6 L, Vitamin B12 329 Microbiology: Microbiology 06/03/24 21:45 Urine, Cystoscopy Urine Culture - Final Presumptive E. coli 06/03/24 17:14 Urine, Clean Catch Urine Culture - Final Escherichia coli Radiography Diagnostic Testing: Radiology Impression Chest X-Ray 06/03/24 16:05 IMPRESSION: Normal x-ray examination of the chest. Electronically Signed: Ra Lara MD at 16:34 EST , Abdomen/Pelvis CT 06/03/24 18:35 IMPRESSION: Limited by patient''s size. There has been no movement of a proximal right ureteral stone since January. Moderate right hydronephrosis. Probable cholelithiasis. Stable stones and calcifications of the mid left kidney. Moderate diffuse fecal retention. Electronically Signed: Ra Lara MD at 19:40 EST , D/C Instructions Discharge Diet: No restrictions Weight Bearing Status: Full weight bearing DC O2, CPAP, BIPAP Needs Additional Home O2 Discharge instructions: No DC home with Oxygen: No Meaningful Use Info Meaningful Use Meaningful Use Diagnoses (Choose all that apply): None applicable Ischemic Stroke Statin Dosing Therapy Reference: STATIN DOSE THERAPY REFERENCE: * Patients > 75 years receive moderate or high dose statin therapy. * Patients 75 years or YOUNGER should receive HIGH intensity statin dose unless contraindicated. You will be required to document reason for non-treatment if statin daily dose does not meet guidelines. HIGH DOSE STATIN THERAPY DAILY Atorvastatin > than or = to 40 mg Rosuvastatin > than or = to 20 mg Amlodipine + Atorvastatin > than or = to 2.5/40 mg Ezetimibe + Simvastatin 10/80 mg Simvastatin 80mg Discharge Plan Admission Admit Date/Time: 06/03/24 20:41 Primary Reason for Your Visit: Right stent placement Attending Provider: Kevyn Haas Primary Care Provider: Laura Shaikh NP Consulting Providers: Tomás Wright; Jaiden Prakash Discharge Orders/Prescriptions Prescriptions: New cefdinir 300 mg capsule 300 mg PO BID Qty: 20 0RF Continued zolpidem [Ambien] 10 MG tablet 10 mg PO QHS PRN PRN (Reason: Sleep) cyclobenzaprine 10 mg tablet 10 - 20 mg PO QHS PRN (Reason: Pain) Patient Comments: take 1 tablet by mouth three times a day if needed Referrals / Follow Up: Tomás Wright MD [Med Staff - Active Staff] - See Referral Note (As directed) Laura Shaikh NP, ORCHARDIST-C [Primary Care Provider] - Disposition Disposition (needs filled in before D/C Order can be placed): Home, Self Care Charges/Coding Visit Charges Inpatient E&M: 29975 Disch Hosp
[2024-06-04 14:26] VITALS: BP 135/75; PULSE 96; RESP 18; TEMP 36.7; O2SAT 97
== END 2024-06-04 15:51 | disposition home or self-care (01) | DRG 660 ==
LOC: ED 20:04 → SDC 20:28 → AC 20:29 → SDC 21:08 → PCU 21:08
PROVIDERS: Urology; Admitting Provider Internal Medicine; Emergency Provider Emergency Medicine; PCP Registered Nurse; Referring Provider Emergency Medicine; Visit Provider Internal Medicine
PROC: 0T768DZ Dilation of Right Ureter with Intraluminal Device, Via Natural or Artificial Opening Endoscopic (ICD-10-PCS; principal; 2024-06-03 21:00)
DX: N13.6 Pyonephrosis (principal); Z68.41 Body mass index [BMI] 40.0-44.9, adult; N20.1 Calculus of ureter; N30.01 Acute cystitis with hematuria; I10 Essential (primary) hypertension; E66.01 Morbid (severe) obesity due to excess calories; R73.9 Hyperglycemia, unspecified; Z86.16 Personal history of COVID-19; B96.20 Unspecified Escherichia coli [E. coli] as the cause of diseases classified elsewhere; Z96.651 Presence of right artificial knee joint
CPT/HCPCS: 36415; 71046; 74176; 76000; 80048; 80053; 81001; 82607; 82746; 83036; 83605; 83735; 84100; 84443; 85025; 87040; 87086; 87088; 87186; 94668; 94760; 99252; 99285; J7030; A4216; C1769; C2617; G0463; J2405